=== PATIENT | female | born 1930 | race Caucasian/White ===

== ENCOUNTER 2017-05-08 06:35 | Emergency (ER) | payer MEDICARE, OTHER ==
[2017-05-08] MEDS ORDERED: HYDROmorphone 0.5 MG/0.5 ML Syringe IVPUSH ONE (07:27)
[2017-05-08] MEDS ORDERED: Sodium Chloride 0.9% 1,000 ML IV SCH (07:30)
--- NOTE | 2017-05-08 08:30 | EDM.PDOC ---
ED HPI GENERAL MEDICAL PROBLEM - General Chief Complaint: Abdominal Pain Stated Complaint: ABDOMINAL PAIN Time Seen by Provider: 05/08/17 07:15 Source of Information: Reports: Patient, Family History Limitations: Reports: No Limitations - History of Present Illness INITIAL COMMENTS - FREE TEXT/NARRATIVE: 87-year-old female who is been struggling with some right flank and right upper abdominal pain for the past 2 weeks, seems to be worsening and had difficulty sleeping last night. She feels like her right upper abdomen is "swollen". She's also had some increased urinary frequency but no dysuria. No fevers or chills, no chest pain, no shortness of breath and no significant bowel changes. No recent trauma although she's been working hard in the garden. She went on a long walk yesterday. She has a history of a cholecystectomy. Onset: Unknown/Unsure (Symptoms have been waxing and waning for several weeks) Location: Reports: Abdomen Quality: Reports: Ache, Pressure Severity: Moderate Improves with: Reports: None Worsens with: Reports: Other (Palpation of the painful area hurts, it also is painful to bend forward) Associated Symptoms: Denies: Cough, Fever/Chills, Loss of Appetite, Nausea/ Vomiting, Shortness of Breath, Weakness Right Lower Abdomen Pain Score (Numeric/FACES): 8 - Related Data Allergies Allergy/AdvReac Type Severity Reaction Status Date / Time No Known Allergies Allergy Verified 05/08/17 06:53 Home Meds: Home Meds Magnesium Hydroxide [Milk of Magnesia] 30 ml PO DAILY PRN #30 05/15/15 [Rx] Biotin 1 tab PO DAILY 09/10/15 [History] Calcium Carbonate [Calcium] 1 tab PO BID 09/10/15 [History] Cholecalciferol (Vitamin D3) [Vitamin D] 1 tab PO DAILY 09/10/15 [History] Glucosa Keenan 2KCl/Chondroitin Keenan [Glucosamine-Chondroitin Cap] 1 tab PO DAILY [History] Mv-Mn/FA/Vit K/Lycop/Lut/Zeaxa [Ocuvite Eye + Multi Tablet] 1 tab PO DAILY 09/10 [History] Vitamin B Complex 1 cap PO DAILY 09/10/15 [History] Past Medical History HEENT History: Reports: Impaired Vision Other Cardiovascular History: "I guess it skips a beat every once in a while" Other Gastrointestinal History: Constipation 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: , 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 Other OB/BYN History: prolapsed uterus Musculoskeletal History: Reports: Fracture Other Musculoskeletal History: r leg ankle Neurological History: Reports: TIA Psychiatric History: Reports: Anxiety, Depression - Infectious Disease History Infectious Disease History: Reports: Chicken Pox, Measles, Mumps - Past Surgical History HEENT Surgical History: Reports: Cataract Surgery, Tonsillectomy 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 GI Surgical History: Reports: Cholecystectomy, Other (See Below) Other GI Surgeries/Procedures: Has been told can not see appendics Female Surgical History: Reports: Hysterectomy Social & Family History - Tobacco Use Smoking Status *Q: Never Smoker Second Hand Smoke Exposure: No - Caffeine Use Caffeine Use: Reports: Coffee, Soda - Recreational Drug Use Recreational Drug Use: No - Living Situation & Occupation Living situation: Reports: , with Spouse Occupation: Retired ED ROS GENERAL - Review of Systems Review Of Systems: See Below Constitutional: Denies: Fever, Chills, Malaise HEENT: Reports: No Symptoms Respiratory: Reports: Pleuritic Chest Pain (A small amount of increased pain with deep breath). Denies: Shortness of Breath Cardiovascular: Denies: Chest Pain, Palpitations Endocrine: Denies: Fatigue GI/Abdominal: Reports: Abdominal Pain. Denies: Constipation, Diarrhea, Decreased Appetite, Nausea, Vomiting : Reports: Urgency (Little bit of increased urgency) Musculoskeletal: Reports: No Symptoms Skin: Reports: No Symptoms Neurological: Reports: No Symptoms Psychiatric: Reports: No Symptoms ED EXAM, GI/ABD - Physical Exam Exam: See Below Exam Limited By: No Limitations General Appearance: Alert, No Apparent Distress (Patient is not distressed but does look uncomfortable) Eyes: Bilateral: Normal Appearance Respiratory/Chest: No Respiratory Distress, Lungs Clear Cardiovascular: Regular Rate, Rhythm GI/Abdominal Exam: Soft, Tender (Patient is tender in the right upper quadrant, right flank and markedly tender to palpation along the lower right edge of the rib cage) Extremities: No: Pedal Edema Neurological: Alert, Oriented Skin Exam: Warm, Dry (No rash over the painful area) Course - Vital Signs Last Recorded V/S: Last Vital Signs Temp 97.2 F 05/08/17 10:00 Pulse 86 05/08/17 10:00 Resp 20 05/08/17 10:00 BP 154/76 H 05/08/17 10:00 Pulse Ox 92 L 05/08/17 10:00 - Orders/Labs/Meds Orders: Active Orders 24 hr Category Date Time Status PATIENT RETYPE [BBK] Stat Lab 05/08/17 10:00 Results TYPE AND SCREEN [BBK] Stat Lab 05/08/17 10:00 Results Labs: Laboratory Tests 05/08/17 05/08/17 05/08/17 Range/Units 07:37 07:37 08:28 WBC 7.9 (4.5-11.0) K/uL RBC 4.52 (3.30-5.50) M/uL Hgb 13.7 (12.0-15.0) g/dL Hct 41.8 (36.0-48.0) % MCV 93 (80-98) fL MCH 30 (27-31) pg MCHC 33 (32-36) % Plt Count 231 (150-400) K/uL Neut % (Auto) 85 H (36-66) % Lymph % (Auto) 6 L (24-44) % Runnels % (Auto) 9 H (2-6) % Eos % (Auto) 1 L (2-4) % Baso % (Auto) 0 (0-1) % Sodium 139 L (140-148) mmol/L Potassium 3.8 (3.6-5.2) mmol/L Chloride 105 (100-108) mmol/L Carbon Dioxide 26 (21-32) mmol/L Anion Gap 11.8 (5.0-14.0) mmol/L BUN 11 D (7-18) mg/dL Creatinine 0.8 (0.6-1.0) mg/dL Est Cr Clr Drug Dosing 40.66 mL/min Estimated GFR (MDRD) > 60 (>60) Glucose 126 H (74-106) mg/dL Calcium 8.6 (8.5-10.1) mg/dL Total Bilirubin 1.5 H (0.2-1.0) mg/dL AST 27 (15-37) U/L ALT 26 (12-78) U/L Alkaline Phosphatase 84 (46-116) U/L Total Protein 6.9 (6.4-8.2) g/dL Albumin 3.5 (3.4-5.0) g/dL Globulin 3.4 (2.3-3.5) g/dL Albumin/Globulin Ratio 1.0 L (1.2-2.2) Amylase 62 (25-115) U/L Lipase 151 (73-393) U/L Urine Color Yellow Urine Appearance Cloudy Urine pH 6.5 (4.5-8.0) Ur Specific [place] 1.015 (1.008-1.030) Urine Protein Negative (NEGATIVE) mg/dL Urine Glucose (UA) Normal (NEGATIVE) mg/dL Urine Ketones 50 H (NEGATIVE) mg/dL Urine Occult Blood Negative (NEGATIVE) Urine Nitrite Negative (NEGATIVE) Urine Bilirubin Negative (NEGATIVE) Urine Urobilinogen Normal (NORMAL) mg/dL Ur Leukocyte Esterase Large (NEGATIVE) Urine RBC 0-5 (0-5) Urine WBC 0-5 (0-5) Ur Epithelial Cells Many Amorphous Sediment Few Urine Bacteria Moderate Urine Mucus Few Blood Type Gel Antibody Screen 05/08/17 Range/Units 10:00 WBC (4.5-11.0) K/uL RBC (3.30-5.50) M/uL Hgb (12.0-15.0) g/dL Hct (36.0-48.0) % MCV (80-98) fL MCH (27-31) pg MCHC (32-36) % Plt Count (150-400) K/uL Neut % (Auto) (36-66) % Lymph % (Auto) (24-44) % Runnels % (Auto) (2-6) % Eos % (Auto) (2-4) % Baso % (Auto) (0-1) % Sodium (140-148) mmol/L Potassium (3.6-5.2) mmol/L Chloride (100-108) mmol/L Carbon Dioxide (21-32) mmol/L Anion Gap (5.0-14.0) mmol/L BUN (7-18) mg/dL Creatinine (0.6-1.0) mg/dL Est Cr Clr Drug Dosing mL/min Estimated GFR (MDRD) (>60) Glucose (74-106) mg/dL Calcium (8.5-10.1) mg/dL Total Bilirubin (0.2-1.0) mg/dL AST (15-37) U/L ALT (12-78) U/L Alkaline Phosphatase (46-116) U/L Total Protein (6.4-8.2) g/dL Albumin (3.4-5.0) g/dL Globulin (2.3-3.5) g/dL Albumin/Globulin Ratio (1.2-2.2) Amylase (25-115) U/L Lipase (73-393) U/L Urine Color Urine Appearance Urine pH (4.5-8.0) Ur Specific [place] (1.008-1.030) Urine Protein (NEGATIVE) mg/dL Urine Glucose (UA) (NEGATIVE) mg/dL Urine Ketones (NEGATIVE) mg/dL Urine Occult Blood (NEGATIVE) Urine Nitrite (NEGATIVE) Urine Bilirubin (NEGATIVE) Urine Urobilinogen (NORMAL) mg/dL Ur Leukocyte Esterase (NEGATIVE) Urine RBC (0-5) Urine WBC (0-5) Ur Epithelial Cells Amorphous Sediment Urine Bacteria Urine Mucus Blood Type O POSITIVE Gel Antibody Screen Negative Meds: Medications Discontinued Medications Generic Name Dose Route Start Last Admin Trade Name Freq PRN Reason Stop Dose Admin Hydromorphone HCl 0.25 mg 05/08/17 07:27 05/08/17 07:44 Dilaudid IVPUSH 05/08/17 07:28 0.25 mg ONETIME ONE Administration Sodium Chloride 1,000 mls @ 200 mls/hr 05/08/17 07:30 05/08/17 07:42 Normal Saline IV 200 mls/hr ASDIRECTED JOSELO Administration Sodium Chloride 100 mls @ 3.5 mls/sec 05/08/17 08:45 05/08/17 09:00 Normal Saline IV 05/08/17 10:00 3 mls/sec ASDIRECTED JOSELO Administration Iopamidol 100 ml 05/08/17 08:43 05/08/17 08:59 Isovue-300 (61%) IV 05/08/17 10:00 86 ml . DIRECTED PRN Administration RADIOLOGY EXAM - Re-Assessments/Exams Free Text/Narrative Re-Assessment/Exam: 05/08/17 07:56 An IV was started, the patient was given a small amount of Dilaudid, 0.25 mg, and normal saline at 200 mL an hour was started. CBC CMP amylase and lipase were obtained. UA was collected. 05/08/17 10:13 Labs were reassuring. A CT scan of the abdomen revealed very large hepatic cysts that are likely causing her symptoms. I discussed her case with Dr. Wilkins , surgery, and he will see her in clinic on Monday to develop a surgical plan. She was given [address] [place] to take one every 4 hours for pain. Departure - Departure Time of Disposition: 10:44 Disposition: Home, Self-Care 01 Condition: Fair Clinical Impression: Cystic disease of liver Abdominal pain Qualifiers: Abdominal location: right upper quadrant Qualified Code(s): R10.11 - Right upper quadrant pain - Discharge Information Instructions: Abdominal Pain, Adult, [id number] Referrals: Shabnam Yi RESEARCH ANALYST [Primary Care Provider] - Forms: ED Department Discharge Care Plan Goals: Take one pain pill every 3-4 hours as needed for discomfort. Recheck on Monday as scheduled. - My Orders Last 24 Hours: My Active Orders 05/08/17 10:00 PATIENT RETYPE [BBK] Stat TYPE AND SCREEN [BBK] Stat - Assessment/Plan Last 24 Hours: My Active Orders 05/08/17 10:00 PATIENT RETYPE [BBK] Stat TYPE AND SCREEN [BBK] Stat
[2017-05-08] MEDS ORDERED: Iopamidol 612 MG/ML 100 ML Bottle IV PRN (08:43)
[2017-05-08] MEDS ORDERED: Sodium Chloride 0.9% 100 ML IV SCH (08:45)
--- NOTE | 2017-05-08 09:21 | CT ---
Abdomen pelvis CT. History: Right abdominal and flank pain. Technique: IV and oral contrast were administered followed by axial imaging from the lung bases exten ding through the abdomen and pelvis. Coronal images were reconstructed. Total DLP: 582. Comparison: Findings: Limited evaluation of the lower lung barriga demonstrates bibasilar atelectasis. There are multiple enlarged cysts of the liver. The 3 largest cysts measure 13.6, 15.8, and 14.3 cm. There is hepatomegaly. The liver measures 26 cm in length. The gallbladder is surgically absent. The right kidney is displaced medially. The kidneys demonstrate symmetric excretion of contrast. Left anita al cysts are demonstrated. The pancreas and adjacent tissues are unremarkable. The adrenal glands are normal in size. There is no large or small bowel distention. There is no wall thickening. No free ai r seen. Impression: 1. Hepatomegaly with multiple enlarged hepatic cysts. 2. No acute findings of the abdomen or pelvis.
[2017-05-08 10:40] VITALS: BP 154/76
== END 2017-05-08 10:35 | disposition home or self-care (01) ==
LOC: JP.ED 06:35
DX: Q44.6 Cystic disease of liver (principal)
CPT/HCPCS: 36415; 74177; 80053; 81001; 82150; 83690; 85025; 86850; 86900; 86901; 96361; 96374; 99283; 99284; J1170; J7030; J7040; Q9967

== ENCOUNTER 2017-05-11 09:52 | Inpatient (IN) | payer MEDICARE, OTHER ==
[2017-05-11] MEDS: Dextrose 5%-Lactated Ringers 1,000 ML IV SCH ×2 (10:31→19:24)
[2017-05-11] MEDS ORDERED: ceFAZolin 2 GM in Premix Bag 1 BAG IV ONE (11:00)
[2017-05-11] MEDS ORDERED: fentaNYL 250 MCG/5 ML SDV ONE (11:34)
[2017-05-11] MEDS ORDERED: Dexamethasone 4 MG/ML SDV ONE (11:35)
[2017-05-11] MEDS ORDERED: Propofol 200 MG/20 ML SDV ONE (11:35)
[2017-05-11] MEDS ORDERED: Neostigmine Methylsulfate 1 MG/ML 5 ML Syringe ONE (11:35)
[2017-05-11] MEDS ORDERED: Glycopyrrolate 0.2 MG/ML 5 ML MDV ONE (11:35)
[2017-05-11] MEDS ORDERED: Succinylcholine 200 MG/10 ML MDV ONE (11:35)
[2017-05-11] MEDS ORDERED: Rocuronium 50 MG/5 ML Vial ONE (11:35)
[2017-05-11] MEDS ORDERED: Ondansetron 4 MG/2 ML SDV ONE (11:37)
[2017-05-11] MEDS ORDERED: Meperidine 300 MG/30 ML PCA Vial IV PRN (11:56)
[2017-05-11] MEDS ORDERED: Naloxone 0.4 MG/ML SDV IV PRN (11:58)
[2017-05-11] MEDS ORDERED: Lactated Ringers 1,000 ML ONE (15:27)
[2017-05-11] MEDS ORDERED: fentaNYL 100 MCG/2 ML SDV ONE (16:41)
[2017-05-11] MEDS ORDERED: Ondansetron 4 MG/2 ML SDV IVPUSH PRN (18:20)
[2017-05-11] MEDS ORDERED: ceFAZolin 1 GM in Premix Bag 1 BAG IV SCH (19:00)
[2017-05-11] MEDS: Pantoprazole 40 MG Vial IV SCH (19:46)
[2017-05-11] MEDS ORDERED: ceFAZolin 1 GM Vial ONE (20:12)
[2017-05-11] MEDS ORDERED: Sodium Chloride 0.9% 50 ML ONE (20:13)
[2017-05-12] MEDS ORDERED: ceFAZolin 1 GM Vial ONE (03:22)
[2017-05-12] MEDS ORDERED: Sodium Chloride 0.9% 50 ML ONE (03:24)
[2017-05-12] MEDS: Dextrose 5%-Lactated Ringers 1,000 ML IV SCH ×2 (07:07→15:32)
--- NOTE | 2017-05-12 08:18 | PN ---
DATE OF SERVICE: 05/12/2017 SUBJECTIVE: Jenn reports her pain is controlled. She is alert and oriented. Vital signs are stable. She has no other concerns or questions. OBJECTIVE: GENERAL: Jenn Jones is an 87-year-old female. VITAL SIGNS: TPR 97, 63, 16. Blood pressure 108/47. HEENT: Negative. NECK: Supple. HEART: Regular rate and rhythm. LUNGS: Clear. ABDOMEN: Dressings dry and intact. Abdominal binder is on. EXTREMITIES: Without peripheral edema. SCDs are on. ASSESSMENT: Right hepatic lobectomy, excision of 3 large hepatic cyst, fenestration of hepatic cyst for large simple cyst occupying center right lobe of the liver, smaller cyst anterior aspect, 05/11/2017. PLAN: 1. Check CBC, CMP in a.m. 2. Dressings off, may shower. 3. 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 4. Start tramadol which is already ordered. 5. Advanced diet as tolerated which is already ordered. 6. Good pulmonary toilet encouraged. 7. We will evaluate p.r.n. or in a.m. Rosaline Rasheed PA-C /[id number]
[2017-05-12] MEDS: traMADol 50 MG Tab PO PRN ×3 (10:50→23:43)
[2017-05-12] MEDS ORDERED: ceFAZolin 1 GM in Premix Bag 1 BAG IV ONE (12:00)
[2017-05-12] MEDS: Acetaminophen 325 MG Tab PO PRN (12:07)
[2017-05-12] MEDS ORDERED: Magnesium Hydroxide 400 MG/5 ML Susp 30 ML Cup PO ONE (16:32)
[2017-05-12] MEDS: Pantoprazole 40 MG Vial IV SCH (20:56)
[2017-05-12] MEDS ORDERED: traMADol 50 MG Tab ONE (23:42)
[2017-05-13] MEDS ORDERED: Bisacodyl 10 MG Supp RECTAL ONE (08:00)
[2017-05-13] MEDS ORDERED: Potassium Chloride 20 MEQ Tab.ER PO ONE (08:00)
[2017-05-13] MEDS: traMADol 50 MG Tab PO PRN (08:03)
[2017-05-13] MEDS: Acetaminophen 325 MG Tab PO PRN (08:38)
[2017-05-13 11:23] VITALS: BP 124/74
[2017-05-13] MEDS ORDERED: Pantoprazole 40 MG Tab.CR PO SCH (16:30)
--- NOTE | 2017-05-15 11:58 | DISCH ---
ADMISSION DIAGNOSIS: Symptomatic cysts on liver. DISCHARGE DIAGNOSES: Right hepatic lobectomy excision of 3 large hepatic cysts, fenestration of hepatic cyst for a large simple cyst occupying center right lobe of liver, smaller cyst anterior aspect, date of surgery 05/11/2017. HISTORY: Jenn Jones is a pleasant 87-year-old female, who had large hepatic cysts, which were causing increased abdominal pain and pressure. After preoperative evaluation and discussion of possible risks and possible complications, she wished to proceed with surgical procedure. HOSPITAL COURSE: Jenn had her surgery on 05/11/2017. She had no operative complications. On postop day 1, she was started on oral pain medication. Her diet was advanced as tolerated. She was up ambulating. On postop day 2, she was able to be discharged to home. Her ORESTES drain will be left in. Potassium was replaced prior to discharge. Pain was well managed. Activity was good. PHYSICAL EXAMINATION: GENERAL: Jenn Jones is a pleasant 87-year-old female. She is alert and orientated. VITAL SIGNS: Height 5 feet 2 inches. Weight is 140 pounds. TPR is 98.2, 76, 14 and blood pressure 112/51. HEENT: Negative. NECK: Supple. HEART: Regular rate and rhythm. LUNGS: Clear. ABDOMEN: Sutures in place. Her ORESTES drain put out 400 mL of a punch-colored drainage in the past 24 hours. Oral intake was 1840 and urine output was 1000. She did void 125 mL after her Rodriguez was removed today. EXTREMITIES: Without peripheral edema. DISPOSITION: Discharged to home. CONDITION: Stable and improving. FOLLOWUP APPOINTMENT: Rosaline Rasheed PA-C on 05/16/2017 at 10:00 a.m. HOME MEDICATIONS: 1. Tylenol 650 mg oral q.4 hours p.r.n. pain. 2. Tramadol 50 mg q.4 hours p.r.n. pain, #30. 3. She is to resume her home medications of biotin 1000 mcg oral daily. 4. Calcium carbonate 500 mg twice daily. 5. Vitamin D3 1000 units daily. 6. Ocuvite Eye + Multi tablet 1 daily. 7. Vitamin B complex 1 daily. 8. Discontinue taking the hydrocodone and acetaminophen. DISCHARGE DIET: Usual diet as tolerated. Drink 8 to 10 glasses of water a day. ACTIVITY: As tolerated. No lifting greater than 10 pounds for 2 weeks. DISCHARGE INSTRUCTIONS: Driving, do not drive while on pain medication. Shower/bathing, may shower. Notify provider if any fever, increased pain, nausea, or vomiting. Keep site clean and dry. Wear abdominal binder for 2 weeks and then as tolerated. Special instructions: Strip, empty, measure ORESTES drain 4 times a day and when half full, record the amount of drainage and bring to clinic appointment. Use incentive spirometer 10 times every hour while awake.
--- NOTE | 2017-05-15 17:55 | OR ---
DATE OF PROCEDURE: 05/11/2017 PREOPERATIVE DIAGNOSIS: Very large hepatic cyst, causing marked pain and difficulty in eating secondary to compression of the zackary-epigastric outlet. POSTOPERATIVE DIAGNOSES: 1. Right hepatic lobe largely occupied by 3 large cysts. 2. Smaller left lobe cyst. OPERATIVE PROCEDURE: Diagnostic laparoscopy with: 1. Right hepatic lobectomy including excision of the 3 large cysts (621724) . 2. Fenestration of hepatic cysts involving the quadrate lobe of the liver ( [id number]). ANESTHESIA: General. HEAD OF INSIGHT: ARMANI Matute INDICATIONS FOR PROCEDURE: This is an 87-year-old, presenting with worsening pain and inability to maintain satisfactory oral intake. On CT scan earlier this week, she was noted to have massive cyst involvement, primarily in the right lobe, causing displacement of the right kidney, compression of the gastric outlet area, as well as marked distention of the abdomen anteriorly and laterally at that level. The area had become, at this point, quite tender as well. These appear to be simple cysts by CT scan, and due to their large size and associated symptoms, plan is to proceed with fenestration and/or excision of these, depending on the operative findings. Potential risks of the procedure including bleeding, infection, injury to underlying viscera, the remote possibility these might be malignant were gone over, along with the remote possibility of cardiopulmonary, septic, or hemorrhagic complications leading to were all discussed, and the patient wishes to proceed. DETAILS OF THE PROCEDURE: The patient was taken to the operating room, and after general endotracheal anesthesia was induced, Rodriguez catheter was inserted, and the patient was placed in a lithotomy position. The abdomen was then prepped and draped. Because of the cysts more or less coming down on the right side of the abdomen to somewhat below the umbilicus, the initial trocar site was in the left lower quadrant. Eventually, four additional trocars were placed. Initially, the 3 hepatic cysts on the right lobe of the liver were seen. These essentially occupied the entire substance of the right lobe with remaining liver tissue being essentially where the quadrate lobe of the liver started, i.e. that would be the right-sided portion of the left lobe of the liver. At that point, the decision was to initially drain these cysts to facilitate further dissection. The cysts were then drained. A total of 3800 mL of clear serous fluid was removed upon drainage of the 3 cysts. At this point, the right lobe of the liver, which was essentially now cysts with only a small rim of liver tissue around it, was excised flush with the quadrate lobe, beginning inferiorly and then continuing superiorly with a series of SARTHAK olegario. In most cases, a purple load and in less common cases, the claire loads were used. The portions of liver occupying the cysts were taken out in pieces to facilitate satisfactory removal of the cysts, and these 3 cysts were separately labeled as they came out as well. At that point, the right hepatic lobectomy appeared to be satisfactorily completed. No bile leaks were seen. There is one fairly substantial cyst in the quadrate lobe. This was located anteriorly. This was initially incised and another 150 mL of fluid was removed. This also was clear fluid. The anterior aspect of the cyst was then opened, and a small window of tissue taken to provide fenestration of this cyst. At this point, no further problems were noted. A Kendell-Gold drain was then taken to the right lateral trocar site, positioned adjacent to the hepatic lobectomy staple lines, and the trocars were then sequentially removed and peritoneal cavity deflated. The fascia of the 12 mm site was closed with 0 Vicryl stitch and the skin at each of the incisions with 4-0 Vicryl skin stitch. The drain was affixed with a 4-0 Vicryl stitch as well and the patient taken to the recovery room in satisfactory condition. Physician physical therapist assistant, Rosaline Rasheed, played an essential role in assisting in this case, helping to position the patient, retracting structures as needed, as well as suturing and cutting sutures when indicated. Her presence improved patient's safety and decreased operative time. Hayden Wilkins MD /[id number]
== END 2017-05-13 11:50 | disposition home or self-care (01) | DRG 407 ==
LOC: JP.SDS 09:52 → JP.MS 09:52 → EDSTATUS 11:00 → JP.MS 17:50
PROVIDERS: ADMIT Surgery; ATTEND Surgery
PROC: 0FB14ZZ Excision of Right Lobe Liver, Percutaneous Endoscopic Approach (ICD-10-PCS; principal; 2017-05-11)
PROC: 0F9 Hepatobiliary System and Pancreas, Drainage (ICD-10-PCS; principal; 2017-05-11)
DX: K76.89 Other specified diseases of liver (principal); Z86.73 Personal history of transient ischemic attack (TIA), and cerebral infarction without residual deficits; G54.7 Phantom limb syndrome without pain
CPT/HCPCS: 36415; 80053; 83735; 83880; 84100; 85027; 86850; 86900; 86901; 86920; 86922; 88305; 93005; 94762; A9270-GY; C9113; J0330; J0690; J1100; J2175; J2405; J2704; J2710; J3010; J7042; J7050; J7120

== ENCOUNTER 2020-03-13 07:55 | Inpatient (IN) | payer MEDICARE, OTHER ==
[~2020-03-13 07:55] MED LIST: Dexamethasone 4 MG/ML SDV ONE; Glycopyrrolate 0.2 MG/ML 5 ML MDV ONE; Neostigmine Methylsulfate 1 MG/ML 5 ML Syringe ONE; Ondansetron 4 MG/2 ML SDV ONE; Propofol 200 MG/20 ML SDV ONE; Rocuronium 50 MG/5 ML Vial ONE; Succinylcholine 200 MG/10 ML MDV ONE; fentaNYL 250 MCG/5 ML SDV ONE
[2020-03-13] MEDS ORDERED: Bupivacaine 0.5% 50 ML MDV ONE (08:04)
[2020-03-13] MEDS ORDERED: Meropenem 500 MG SDV ONE (08:04)
[2020-03-13] MEDS ORDERED: Lidocaine 1% with EPINEPHrine 1:100,000 50 ML MDV ONE (08:04)
[2020-03-13] MEDS ORDERED: Bupivacaine 0.5%/EPINEPHrine 1:200,000 50 ML MDV ONE (08:05)
[2020-03-13] MEDS ORDERED: Acetaminophen 500 MG Tab PO ONE (08:15)
[2020-03-13] MEDS ORDERED: Dextrose 5%-Lactated Ringers 1,000 ML IV SCH (09:00)
[2020-03-13] MEDS ORDERED: Ropivacaine 30 ML, dexAMETHasone 8 MG, EPINEPHrine 0.4 MG, Sodium Chloride 0.9% 47.6 ML NERVRT SCH ×4 (09:45)
[2020-03-13] MEDS ORDERED: diphenhydrAMINE 25 MG Cap PO PRN (10:24)
[2020-03-13] MEDS ORDERED: HYDROmorphone/Normal Saline 15 MG/30 ML PCA IV PRN (10:24)
[2020-03-13] MEDS ORDERED: Naloxone 0.4 MG/ML SDV IVPUSH PRN (10:24)
[2020-03-13] MEDS ORDERED: diphenhydrAMINE 50 MG/ML SDV IVPUSH PRN (10:24)
[2020-03-13] MEDS ORDERED: Ondansetron 4 MG/2 ML SDV IVPUSH PRN (10:24)
[2020-03-13] MEDS: cefOXitin 2 GM in Sodium Chloride 0.9% 50 ML IV ONE ×2 (10:26→14:22)
[2020-03-13] MEDS ORDERED: Labetalol 20 MG/4 ML Syringe ONE (10:52)
[2020-03-13] MEDS ORDERED: Lactated Ringers 1,000 ML ONE (11:27)
[2020-03-13] MEDS ORDERED: Sugammadex Sodium 200 MG/2 ML VIAL ONE (12:23)
[2020-03-13] MEDS ORDERED: fentaNYL 100 MCG/2 ML SDV ONE (12:29)
[2020-03-13] MEDS ORDERED: Cyclobenzaprine 10 MG Tab PO PRN (13:29)
[2020-03-13] MEDS ORDERED: Naloxone 0.4 MG/ML SDV IV PRN (14:00)
[2020-03-13] MEDS: Ondansetron 4 MG/2 ML SDV IVPUSH PRN (14:19)
[2020-03-13] MEDS: hydrOXYzine HCL 100 MG/2 ML SDV IM PRN (15:43)
[2020-03-13] MEDS: Pantoprazole 40 MG Vial IVPUSH SCH (16:25)
[2020-03-13] MEDS: Dextrose 5%-Lactated Ringers 1,000 ML IV SCH ×2 (16:28→23:12)
[2020-03-13] MEDS: cefOXitin 2 GM in Sodium Chloride 0.9% 50 ML IV SCH ×2 (16:36→21:31)
[2020-03-13] MEDS ORDERED: Scopolamine 1.5 MG Transdermal Patch TOP SCH (17:00)
[2020-03-14] MEDS: cefOXitin 2 GM in Sodium Chloride 0.9% 50 ML IV SCH (04:35)
[2020-03-14] MEDS: Dextrose 5%-Lactated Ringers 1,000 ML IV SCH ×3 (04:36→16:07)
[2020-03-14] MEDS: SCOPOLAMINE PATCH CHECK TOP SCH (08:00)
[2020-03-14] MEDS ORDERED: Potassium Phos in 0.9 % NaCl 15 MMOL in Premix Bag 1 BAG IV ONE ×2 (09:00)
[2020-03-14] MEDS: Pantoprazole 40 MG Vial IVPUSH SCH (16:08)
[2020-03-15] MEDS: Dextrose 5%-Lactated Ringers 1,000 ML IV SCH ×2 (02:15→21:57)
[2020-03-15] MEDS: Ondansetron 4 MG/2 ML SDV IVPUSH PRN (07:49)
[2020-03-15] MEDS: Potassium Phos in 0.9 % NaCl 15 MMOL in Premix Bag 1 BAG IV SCH ×6 (08:09→12:40)
[2020-03-15] MEDS: Magnesium Sulfate/Water 2 GM in Premix Bag 1 BAG IV SCH ×3 (08:09→19:03)
[2020-03-15] MEDS: Bisacodyl 5 MG Tab PO SCH ×2 (08:51→20:38)
[2020-03-15] MEDS: Docusate Sodium 100 MG Cap PO SCH ×2 (08:51→20:38)
[2020-03-15] MEDS: SCOPOLAMINE PATCH CHECK TOP SCH (10:09)
[2020-03-15] MEDS ORDERED: Furosemide 20 MG/2 ML VIAL IVPUSH ONE (14:00)
--- NOTE | 2020-03-15 14:30 | PN ---
DATE OF SERVICE: 03/15/2020 The patient has been afebrile with stable vital signs. Urine output is still a little bit on the low side, but creatinine actually crept down from 0.9 to 0.8 over the last 24 hours. We will leave the IV running at 100 mL an hour. We will continue some bowel stimulation today. 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 Otherwise, maximize activity and work with pulmonary toilet. Her phosphate and magnesium are both somewhat low, and these will be supplemented. We will give her some Lasix after the K-Phos infusion to avoid any issues with fluid overload. We will leave the Rodriguez catheter in 1 more day as the urine output is just adequate, and we will probably get that out tomorrow. Hayden Wilkins MD /[id number]
[2020-03-15] MEDS: Pantoprazole 40 MG Vial IVPUSH SCH (15:40)
[2020-03-16] MEDS: Magnesium Sulfate/Water 2 GM in Premix Bag 1 BAG IV SCH ×4 (01:34→19:28)
[2020-03-16] MEDS ORDERED: HYDROmorphone 2 MG Tab PO PRN (07:18)
[2020-03-16] MEDS ORDERED: Potassium Phosphates 45 MMOLE in Sodium Chloride 0.9% 250 ML IV SCH (07:30)
[2020-03-16] MEDS ORDERED: Acetaminophen 325 MG Tab PO SCH (07:30)
[2020-03-16] MEDS: Dextrose 5%-Lactated Ringers 1,000 ML IV SCH (07:51)
[2020-03-16] MEDS: Potassium Phos in 0.9 % NaCl 15 MMOL in Premix Bag 1 BAG IV SCH ×6 (07:56→14:12)
[2020-03-16] MEDS: Docusate Sodium 100 MG Cap PO SCH ×2 (08:12→21:39)
[2020-03-16] MEDS: Bisacodyl 5 MG Tab PO SCH ×2 (08:12→20:00)
[2020-03-16] MEDS: Acetaminophen 325 MG Tab PO SCH ×3 (08:12→19:29)
[2020-03-16] MEDS: SCOPOLAMINE PATCH CHECK TOP SCH (08:13)
--- NOTE | 2020-03-16 09:08 | PN ---
DATE OF SERVICE: 03/14/2020 The patient has been afebrile with stable vital signs. Initially, she has had quite a bit of nausea. This appears to have cleared. She appeared to be somewhat under-medicated in terms of pain, and at this point, we have her on low dose Dilaudid, demand dose because of her age and such, but we will move her up to 0.3 from 0.2 presently. Otherwise, urine output has been satisfactory, but I will leave the IV rate running at a fast rate until around 4:00 p.m. and then back down to 100 mL an hour. Her labs show the hemoglobin having dropped to 13.5 preoperatively to 12.0 this morning. Given the intraoperative blood loss that has been indicated, we are probably not dealing with much in the way of real postoperative bleeding. Quite a bit is coming out of the drain, that is red, and there probably is quite a bit in the way of serous type fluid mixed with that. The total bilirubin is 0.8. She is going okay from liver function standpoint. The phosphate is marginally low. We will give her some potassium phosphate IV today. Otherwise, maximize activity and work with pulmonary toilet. We will leave the Rodriguez catheter in place for today to kristina her urine output. Hayden Wilkins MD /[id number]
--- NOTE | 2020-03-16 10:28 | PN ---
DATE OF SERVICE: 03/16/2020 SUBJECTIVE: Jenn has been afebrile. Oral intake 290 and sips of liquid. Her Rodriguez catheter put out 545. ORESTES drain #1, 170. ORESTES drain #2 is 210. ORESTES drain #3 is 165. The first 2 ORESTES drains are dark red drainage, and ORESTES drain #3 is serosanguineous. REVIEW OF SYSTEMS: Remainder of review of systems negative for any pertinent positives and negatives. OBJECTIVE: GENERAL: Jenn is a pleasant 89-year-old female. VITAL SIGNS: TPR at 0231, 97.7, 77, 18, blood pressure 123/57. HEENT: Negative. NECK: Supple. HEART: Regular rate and rhythm. LUNGS: Clear. ABDOMEN: Dressing dry and intact. ORESTES drains x3 as above. EXTREMITIES: Without peripheral edema. ASSESSMENT: Exploratory laparotomy with, 1. Right hepatic lobectomy. 2. Marsupialization of medial cyst, tearing wall overlying segment 4. 3. Resection portion of the right diaphragm. 4. Omental flap into marsupialization, medial right hepatic cyst. 5. Repair of trocar site hernia. 6. Placement of Interceed mesh. POSTOPERATIVE DIAGNOSES: 1. Multiple large right hepatic cysts causing moderate pain and segment displacement and adhesion to right diaphragm. 2. Incarcerated incisional hernia, trocar site. Date of surgery, 03/13/2020. Surgeon: Hayden Wilkins MD. PLAN: 1. Discontinue Rodriguez. 2. Decrease IV to 60 mL per hour. 3. K-Phos 45 millimoles IV today. 4. Full liquid diet. 5. Discontinue DIRECTOR OF ELEMENTARY EDUCATION. 6. Dilaudid 2 mg every 4 hours p.r.n. pain. 7. Tylenol 650 q.6 hours scheduled. 8. Change Aquacel, order written, every 3 days. 9. We will evaluate p.r.n. or in a.m. Rosaline Rasheed PA-C /[id number]
[2020-03-16] MEDS: Pantoprazole 40 MG Vial IVPUSH SCH (17:18)
[2020-03-17] MEDS: Magnesium Sulfate/Water 2 GM in Premix Bag 1 BAG IV SCH (01:33)
[2020-03-17] MEDS: Acetaminophen 325 MG Tab PO SCH ×4 (01:34→20:55)
[2020-03-17] MEDS: Bisacodyl 5 MG Tab PO SCH ×2 (09:32→20:55)
[2020-03-17] MEDS: Docusate Sodium 100 MG Cap PO SCH ×2 (09:32→20:55)
[2020-03-17] MEDS: traMADol 50 MG Tab PO PRN (09:34)
[2020-03-17] MEDS: Potassium Phos in 0.9 % NaCl 15 MMOL in Premix Bag 1 BAG IV SCH ×6 (09:36→14:05)
[2020-03-17] MEDS: hydrOXYzine HCL 100 MG/2 ML SDV IM PRN (13:20)
[2020-03-17] MEDS: Pantoprazole 40 MG Vial IVPUSH SCH (16:15)
[2020-03-18] MEDS: Dextrose 5%-Lactated Ringers 1,000 ML IV SCH (00:29)
[2020-03-18] MEDS: Acetaminophen 325 MG Tab PO SCH ×4 (01:52→19:40)
[2020-03-18] MEDS: Docusate Sodium 100 MG Cap PO SCH ×2 (09:19→21:25)
[2020-03-18] MEDS: Potassium Phos in 0.9 % NaCl 15 MMOL in Premix Bag 1 BAG IV SCH ×8 (09:19→18:34)
--- NOTE | 2020-03-18 13:23 | PN ---
DATE OF SERVICE: 03/13/2020 SUBJECTIVE: Jenn is postop day #2. She states that she had a bowel movement. She is having to urinate quite frequently, would like the IV decreased. Drains were removed yesterday. She states her pain is controlled. She has no other questions or concerns. Her potassium is 3.5 and phosphorus is 2.7. Hemoglobin this morning is 9.2. OBJECTIVE: GENERAL: Jenn Jones is a pleasant, 89-year-old female. She is alert and orientated. VITAL SIGNS: TPR at 0700 is 98.1, 91, 18; blood pressure 126/58. HEENT: Negative. NECK: Supple. HEART: Regular rate and rhythm. LUNGS: Clear. ABDOMEN: Dressing dry and intact. Abdominal binder is on. EXTREMITIES: Without peripheral edema. ASSESSMENT: Exploratory laparotomy with: 1. Right hepatic lobectomy. 2. Manipulation of medial cyst tearing wall of overlying segment 4. 3. Resection of the right diaphragm. 4. Omental flap into medial right hepatic cyst. 5. Repair of trocar site hernia. 6. Placement of Interceed mesh. Postoperative Diagnoses: 1. Multiple large hepatic cyst causing moderate pain and segment displacement and adhesion of right diaphragm. 2. Incarcerated incisional hernia, trocar site. Date of surgery: 03/13/2020. Surgeon: Hayden Wilkins MD. PLAN: 1. K-Phos 60 millimoles IV now. 2. Check CBC, CMP, mag, phos in a.m. 3. Saline lock IV for regular diet. 4. Discontinue Dulcolax tabs. 5. We will evaluate p.r.n. or in a.m. Rosaline Rasheed PA-C /[id number]
[2020-03-18] MEDS: Pantoprazole 40 MG Vial IVPUSH SCH (17:39)
[2020-03-18] MEDS: traMADol 50 MG Tab PO PRN (18:44)
[2020-03-18] MEDS ORDERED: Pantoprazole 40 MG Tab.CR PO SCH (21:00)
[2020-03-19] MEDS: Acetaminophen 325 MG Tab PO SCH (03:00)
[2020-03-19] MEDS ORDERED: Acetaminophen 325 MG Tab PO PRN (07:25)
[2020-03-19 07:36] VITALS: BP 131/64; PULSE 87
[2020-03-19] MEDS: Docusate Sodium 100 MG Cap PO SCH (08:06)
--- NOTE | 2020-03-19 11:49 | DISCH ---
ADMISSION DIAGNOSIS: Cystic disease of the liver. DISCHARGE DIAGNOSES: Exploratory laparotomy with: 1. Right hepatic lobectomy. 2. Manipulation of medial cyst tearing wall of overlying segment IV. 3. Resection of the right diaphragm. 4. Omental flap into medial right hepatic cyst. 5. Repair of trocar site hernia. 6. Placement of Interceed mesh. POSTOPERATIVE DIAGNOSES: 1. Multiple large hepatic cysts causing moderate pain and segment displacement and adhesions of right diaphragm. 2. Incarcerated incisional hernia of trocar site. 3. Date of surgery: 03/13/2020. Surgeon: Hayden Wilkins MD. HISTORY: Jenn Jones is a pleasant 89-year-old female with history of hepatic cysts that were causing her quite a bit of pain. After preoperative evaluation and discussion of possible risks and possible complications, she wished to proceed with surgical procedure. HOSPITAL COURSE: Jenn had her surgery on 03/13/2020. She had no operative complications. On postoperative day #1, she was afebrile. She had quite a bit of nausea and Dilaudid dose was decreased. Hemoglobin dropped from 13.5 to 12. On postoperative day #2, vital signs remained afebrile. She was started on bowel stimulation. Phosphate and magnesium were replaced, and she was given some Lasix to avoid fluid overload. On postoperative day #3, Rodriguez catheter was discontinued. K-Phos was given. She was changed to oral pain medication. On postoperative day #4, she had a bowel movement, advanced to a regular diet. K-Phos was replaced and IV saline locked. On postoperative day #5, Jenn was able to be discharged to [facility] in stable condition. Vital signs are stable. Last labs; hemoglobin 9.1, white count is 4.7, creatinine is 0.7, potassium 4.1, and phosphorus is 3.4. PHYSICAL EXAMINATION: GENERAL: Jenn Jones is a pleasant 89-year-old female. She is alert and orientated. VITAL SIGNS: Height is 5 feet 1.42 inches, weight is 128 pounds. TPR at 07:35 is 95.6; 87; 16; blood pressure 131/64. HEENT: Negative. NECK: Supple. HEART: Regular rate and rhythm. LUNGS: Clear. ABDOMEN: Aquacel dressing is on over stapled incision. Abdominal binder is on. EXTREMITIES: Without peripheral edema. DISPOSITION: Discharged to home. CONDITION: Stable and improving. FOLLOWUP: Appointment With Hayden Wilkins MD, on 03/25/2020. Time of appointment is at 10:00 a.m. HOME MEDICATIONS: 1. Colace 100 mg oral b.i.d. 2. Tylenol 650 mg oral q.6 hours p.r.n. pain. 3. Tramadol/Ultram 50 mg q.6 hours p.r.n. more severe pain that Tylenol does not cover. 4. She is to resume her home medication of: a. Vitamin D3 1000 International Units daily. b. Flonase 1 spray twice daily alternate nostrils. c. Glucosamine/chondroitin 1 tablet oral twice daily. d. Multivitamin 1 tablet twice daily. e. Vitamin B complex 1 capsule oral daily. DIET: Usual diet as tolerated. Drink 8 to 10 glasses of water a day. ACTIVITY: No lifting greater than 10 pounds for 6 weeks. Other activity: Walk at least 6 times daily. Shower/bathing: May shower. DISCHARGE INSTRUCTIONS: 1. Notify provider if any fever, increased pain, swelling, redness, drainage, nausea, vomiting. Wound incision care; keep site clean and dry. Wear abdominal binder for 6 weeks as tolerated. Take off Aquacel dressing over incision on 03/22/2020. Cover incision lightly with gauze or leave open. 2. Use incentive spirometer 10 times every hour while awake for 1 week.
--- NOTE | 2020-03-20 17:09 | PN ---
DATE OF SERVICE: 03/17/2020 The patient has been afebrile with stable vital signs. Her nausea appears to be clearing somewhat. We will discontinue the scopolamine patch and go ahead with oral tramadol rather than Dilaudid today. ORESTES drain has become clear, so we will remove those. Potassium and phosphate are marginally low, these will be supplemented. Her hemoglobin is 9.2, and we will type and cross for 2 units of packed RBCs tomorrow morning in the event that we want to give her a unit of blood prior to discharge. We will transfer to [facility] or in a local residential since her postop rehab is pending. Hayden Wilkins MD /[id number]
--- NOTE | 2020-03-24 13:03 | OR ---
DATE OF PROCEDURE: 03/13/2020 SURGEON: Hayden Wilkins MD PREOPERATIVE DIAGNOSIS: Multiple large right hepatic cysts causing pain and pressure symptoms. POSTOPERATIVE DIAGNOSES: 1. Multiple large right hepatic cysts causing painful symptoms with inflammatory adherence to right diaphragm. 2. Incarcerated incisional hernia (trocar site). OPERATIVE PROCEDURES: Exploratory laparotomy with: 1. Right hepatic lobectomy (72545). 2. Marsupialization of medial cyst leaving the wall overlying segment IV of liver (83713). 3. Resection of portion of right diaphragm (95448). 4. Omental flap placed into marsupialized medial aspect of right hepatic cyst (38623). 5. Repair of incarcerated trocar site hernia (81822). 6. Placement of Interceed mesh to limit recurrent adhesion formation between pelvic and abdominal wall and underlying viscera (34159). ANESTHESIA: General. BRIMMER BLOCKER: Rosaline Rasheed PA-C INDICATIONS FOR PROCEDURE: This is an 89-year-old presenting with some recurrent cysts in the right lobe of liver. These are quite large causing some obvious distention of the abdomen as well as elevation of the right diaphragm and quite a bit in the way of ongoing pain. The plan is to proceed with exploratory laparotomy and excision of those cysts. Potential risks including bleeding, infection, injury to underlying viscera, as well as possibility of cardiopulmonary, septic, or hemorrhagic complications leading to were all discussed, and the patient wishes to proceed. DETAILS OF PROCEDURE: The patient was taken to the operating room and placed in a supine position. After general endotracheal anesthesia was induced, a Rodriguez catheter was inserted, and the abdomen prepped and draped. An upper midline incision from the xiphoid to the umbilicus was made and carried down through the full-thickness abdominal wall. During the course of the entrance, the patient was noted to have previous trocar sites which had incarcerated preperitoneal fat within it. This was excised, sent as a separate specimen. Upon entering the abdomen, the liver in general was inspected. The patient was noted to have some ongoing very small cysts within the left lobe of the liver and we eventually be leaving in a quite hypertrophied left lobe of liver which included entire portion of the segments I, II, III, IV, which should leave her with plenty of liver function given the degree of hypertrophy and the fact that the entire left lobe was present. Initial dissection in the area of the right lobe showed quite a bit in the way of inflammatory adhesions to the right diaphragm. Portions of these were essentially fused and a portion of the right diaphragm was then eventually excised in a linear transverse direction in the posterolateral aspect of the right diaphragm. This was excised initially with olegario with a small amount of muscle then remaining attached to the cyst. The staple line was then reinforced with a 2-0 Prolene running stitch. The 3 of these cysts were eventually all entered and the entire remaining right lobe was excised. The 2 larger cysts were excised in their entirety and the medial of the 3 cysts was at a wall that occupied the right lateral aspect of the segment IV and this was felt to be best left in place so as not to cause any injury to that remaining segment. All of this resection was done with a combination of electrocautery and surgical olegario and the specimens were removed from the field in segments. The hemostasis was obtained at this point with some additional sutures at some staple lines which had some oozing. During the course, some cyst fluid was sent for cytology as well as cultures. At this point, a portion of the omentum from the transverse colon was freed up by dividing the vascular connections through the transverse colon. This was then brought up into the remaining edge of the cyst overlying the segment IV of the liver. This was sutured in place with some 3-0 Vicryl stitch. This was put in position so as to limit the likelihood of the cyst reattachment to itself and recurring in a symptomatic manner. At this point, no further problems were noted. The abdomen was irrigated with antibiotic- containing saline solution. Interceed mesh was then placed underneath the incision from there down into the pelvis to displace those surfaces from the underlying viscera to limit recurrent adhesion formation. The midline fascia was then approximated with #2 Vicryl stitch, which included repair of the trocar site hernia. The subcutaneous tissue was approximated with some 3-0 and 4-0 Vicryl stitch and the skin with olegario. The patient has received bilateral transversus abdominis plane block and incision itself was also anesthetized with 0.5% Marcaine mixed with lidocaine and the patient was taken to the recovery room in satisfactory condition. There were no evident complications. Physician medical office receptionist assistant, Rosaline Rasheed, played an essential role in assisting in this case, helping to position the patient, retract the structures as needed, as well as suturing and cutting sutures when indicated. Her presence improved patient safety and decreased the operative time. Hayden Wilkins MD /[id number]
== END 2020-03-19 09:34 | DRG 406 ==
LOC: JP.SDSSCHI 07:55 → JP.SDS 07:55 → JP.MS 12:20 → EDSTATUS 13:45
PROVIDERS: ADMIT Surgery; ATTEND Surgery
PROC: 0FT Hepatobiliary System and Pancreas, Resection (ICD-10-PCS; principal; 2020-03-13)
PROC: 0WQF0ZZ Repair Abdominal Wall, Open Approach (ICD-10-PCS; 2020-03-13)
PROC: 0FB10ZZ Excision of Right Lobe Liver, Open Approach (ICD-10-PCS; 2020-03-13)
PROC: 0BBT0ZZ Excision of Diaphragm, Open Approach (ICD-10-PCS; 2020-03-13)
PROC: 0JR807Z Replacement of Abdomen Subcutaneous Tissue and Fascia with Autologous Tissue Substitute, Open Approach (ICD-10-PCS; 2020-03-13)
PROC: 0JB80ZZ Excision of Abdomen Subcutaneous Tissue and Fascia, Open Approach (ICD-10-PCS; 2020-03-13)
PROC: 3E0M05Z Introduction of Adhesion Barrier into Peritoneal Cavity, Open Approach (ICD-10-PCS; 2020-03-13)
DX: K76.89 Other specified diseases of liver (principal); K43.0 Incisional hernia with obstruction, without gangrene; M19.90 Unspecified osteoarthritis, unspecified site; K66.0 Peritoneal adhesions (postprocedural) (postinfection); J32.9 Chronic sinusitis, unspecified; Z79.899 Other long term (current) drug therapy; Z90.49 Acquired absence of other specified parts of digestive tract; Z90.710 Acquired absence of both cervix and uterus
CPT/HCPCS: 36415; 80053; 83735; 83880; 84100; 85025; 85027; 86850; 86900; 86901; 86920; 86922; 87070; 87075; 87205; 87493; 88112; 88302; 88307; 94762; 97116-GP; 97163-GP; 97530-GP; A9270-GY; C9113; J0171; J0330; J0694; J1100; J1170; J1940; J2185; J2405; J2704; J2710; J2795; J3010; J3410; J3475; J3490; J7050; J7120; J7121

== ENCOUNTER 2020-03-31 14:54 | Inpatient (IN) | payer MEDICARE, OTHER ==
[2020-03-31] MEDS ORDERED: Sodium Chloride 0.9% 10 ML Syringe FLUSH PRN (16:02)
[2020-03-31] MEDS ORDERED: Sodium Chloride 0.9% 1,000 ML IV STA (16:02)
[2020-03-31] MEDS ORDERED: fentaNYL 100 MCG/2 ML SDV IVPUSH ONE (16:05)
[2020-03-31] MEDS ORDERED: Ondansetron 4 MG/2 ML SDV IVPUSH ONE ×2 (16:05→19:41)
--- NOTE | 2020-03-31 16:07 | EDM.PDOC ---
ED HPI GENERAL MEDICAL PROBLEM - General Chief Complaint: Abdominal Pain Stated Complaint: L ABD PAIN Time Seen by Provider: 03/31/20 15:57 Source of Information: Reports: Patient, Family, RN Notes Reviewed History Limitations: Reports: No Limitations - History of Present Illness INITIAL COMMENTS - FREE TEXT/NARRATIVE: 89-year-old female presents emergency department a complaint of abdominal pain, she recently underwent extensive abdominal surgery with hepatic resection and a diaphragm resection on 13 March. She states over the last 24 hours she has had increasing pain she is not passing gas with some nausea no fevers Abdominal Pain Score (Numeric/FACES): 10 - Related Data Allergies Allergy/AdvReac Type Severity Reaction Status Date / Time No Known Allergies Allergy Verified 03/31/20 15:54 Home Meds: Home Meds Excedrin 1 cap PO Q4HR PRN 03/31/20 [History] Past Medical History HEENT History: Reports: Impaired Vision Other Cardiovascular History: "I guess it skips a beat every once in a while" Gastrointestinal History: Reports: Colon Polyp Other Gastrointestinal History: Constipation Genitourinary History: Reports: Other (See Below) Other Genitourinary History: renal cyst MEDICAL ACCOUNTING CLERK History: Reports: , Spontaneous Other MEDICAL ACCOUNTING CLERK History: prolapsed uterus Musculoskeletal History: Reports: Fracture Other Musculoskeletal History: r leg ankle Neurological History: Reports: TIA Psychiatric History: Reports: Anxiety, Depression - Infectious Disease History Infectious Disease History: Reports: Chicken Pox, Measles, Mumps - Past Surgical History Head Surgeries/Procedures: Reports: None HEENT Surgical History: Reports: Cataract Surgery, Tonsillectomy 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 liver cyst Female Surgical History: Reports: Hysterectomy Neurological Surgical History: Reports: None Musculoskeletal Surgical History: Reports: None Dermatological Surgical History: Reports: None Social & Family History - Family History Family Medical History: Noncontributory - Tobacco Use Smoking Status *Q: Never Smoker - Caffeine Use Caffeine Use: Reports: Coffee - Recreational Drug Use Recreational Drug Use: No - Living Situation & Occupation Living situation: Reports: , with Spouse Occupation: Retired ED ROS GENERAL - Review of Systems Review Of Systems: See Below Constitutional: Denies: Fever, Chills HEENT: Reports: No Symptoms Respiratory: Reports: No Symptoms Cardiovascular: Reports: No Symptoms GI/Abdominal: Reports: Abdominal Pain, Nausea. Denies: Constipation, Diarrhea, Flatus, Vomiting : Reports: No Symptoms ED EXAM, GI/ABD - Physical Exam Exam: See Below Exam Limited By: No Limitations General Appearance: Alert, WD/WN, No Apparent Distress Respiratory/Chest: No Respiratory Distress GI/Abdominal Exam: Soft, Non-Tender, Abnormal Bowel Sounds Course - Vital Signs Last Recorded V/S: Last Vital Signs Temp 99.2 F 03/31/20 15:53 Pulse 79 03/31/20 17:21 Resp 16 03/31/20 16:29 BP 133/67 03/31/20 17:21 Pulse Ox 98 03/31/20 16:29 - Orders/Labs/Meds Orders: Active Orders 24 hr Category Date Time Status Peripheral IV Care [RC] . DIRECTED Care 03/31/20 16:04 Active Abdomen 1V Upright [CR] Urgent Exams 03/31/20 16:02 Taken UA W/MICROSCOPIC [URIN] Urgent Lab 03/31/20 16:02 Ordered Sodium Chloride 0.9% [Saline Flush] Med 03/31/20 16:02 Active 10 ml FLUSH ASDIRECTED PRN Peripheral IV Insertion Adult [OM.PC] Urgent Oth 03/31/20 16:02 Ordered Medication Orders Sodium Chloride (Saline Flush) 10 ml FLUSH ASDIRECTED PRN PRN Reason: Keep Vein Open Last Admin: 03/31/20 16:49 Dose: 10 ml Documented by: PREILOR Labs: Laboratory Tests 03/31/20 03/31/20 03/31/20 Range/Units 16:16 16:16 16:16 WBC 5.3 (4.5-11.0) K/uL RBC 3.82 (3.30-5.50) M/uL Hgb 10.9 L (12.0-15.0) g/dL Hct 35.9 L (36.0-48.0) % MCV 94 (80-98) fL MCH 29 (27-31) pg MCHC 30 L (32-36) % Plt Count 329 (150-400) K/uL Neut % (Auto) 77 H (36-66) % Lymph % (Auto) 14 L (24-44) % Burt % (Auto) 8 H (2-6) % Eos % (Auto) 1 L (2-4) % Baso % (Auto) 1 (0-1) % PT 11.1 (9.5-12.0) sec INR 1.02 (0.80-1.20) Sodium 143 (140-148) mmol/L Potassium 3.2 L (3.6-5.2) mmol/L Chloride 106 (100-108) mmol/L Carbon Dioxide 24 (21-32) mmol/L Anion Gap 16.2 H (5.0-14.0) mmol/L BUN 6 L (7-18) mg/dL Creatinine 0.9 (0.6-1.0) mg/dL Est Cr Clr Drug Dosing 34.83 mL/min Estimated GFR (MDRD) 59 L (>60) Glucose 110 H (74-106) mg/dL Lactic Acid (0.4-2.0) mmol/L Calcium 8.4 L (8.5-10.1) mg/dL Total Bilirubin 0.6 (0.2-1.0) mg/dL AST 27 (15-37) U/L ALT 19 (12-78) U/L Alkaline Phosphatase 80 (46-116) U/L Total Protein 6.8 (6.4-8.2) g/dL Albumin 3.3 L (3.4-5.0) g/dL Globulin 3.5 (2.3-3.5) g/dL Albumin/Globulin Ratio 0.9 L (1.2-2.2) Lipase 230 (73-393) U/L 03/31/20 Range/Units 16:16 WBC (4.5-11.0) K/uL RBC (3.30-5.50) M/uL Hgb (12.0-15.0) g/dL Hct (36.0-48.0) % MCV (80-98) fL MCH (27-31) pg MCHC (32-36) % Plt Count (150-400) K/uL Neut % (Auto) (36-66) % Lymph % (Auto) (24-44) % Burt % (Auto) (2-6) % Eos % (Auto) (2-4) % Baso % (Auto) (0-1) % PT (9.5-12.0) sec INR (0.80-1.20) Sodium (140-148) mmol/L Potassium (3.6-5.2) mmol/L Chloride (100-108) mmol/L Carbon Dioxide (21-32) mmol/L Anion Gap (5.0-14.0) mmol/L BUN (7-18) mg/dL Creatinine (0.6-1.0) mg/dL Est Cr Clr Drug Dosing mL/min Estimated GFR (MDRD) (>60) Glucose (74-106) mg/dL Lactic Acid 1.0 (0.4-2.0) mmol/L Calcium (8.5-10.1) mg/dL Total Bilirubin (0.2-1.0) mg/dL AST (15-37) U/L ALT (12-78) U/L Alkaline Phosphatase (46-116) U/L Total Protein (6.4-8.2) g/dL Albumin (3.4-5.0) g/dL Globulin (2.3-3.5) g/dL Albumin/Globulin Ratio (1.2-2.2) Lipase (73-393) U/L Meds: Medications Generic Name Dose Route Start Last Admin Trade Name Freq PRN Reason Stop Dose Admin Sodium Chloride 10 ml 03/31/20 16:02 03/31/20 16:49 Saline Flush FLUSH 10 ml ASDIRECTED PRN Administration Keep Vein Open Discontinued Medications Generic Name Dose Route Start Last Admin Trade Name Freq PRN Reason Stop Dose Admin Fentanyl 50 mcg 03/31/20 16:05 03/31/20 16:26 Sublimaze IVPUSH 03/31/20 16:06 50 mcg ONETIME ONE Administration Hydromorphone HCl 0.5 mg 03/31/20 16:54 03/31/20 17:01 Dilaudid IVPUSH 03/31/20 16:55 0.5 mg ONETIME ONE Administration Hydromorphone HCl 1 mg 03/31/20 18:34 03/31/20 18:45 Dilaudid IVPUSH 03/31/20 18:35 1 mg ONETIME ONE Administration Sodium Chloride 1,000 mls @ 999 mls/hr 03/31/20 16:02 03/31/20 16:24 Normal Saline IV 03/31/20 17:02 999 mls/hr .BOLUS STA Administration Sodium Chloride 80 mls @ 3.5 mls/sec 03/31/20 17:30 03/31/20 17:45 Normal Saline IV 03/31/20 17:31 3 mls/sec ASDIRECTED JOSELO Administration Iopamidol 84 ml 03/31/20 17:30 03/31/20 17:45 Isovue-300 (61%) IV 03/31/20 17:31 84 ml . DIRECTED JOSELO Administration Ondansetron HCl 4 mg 03/31/20 16:05 03/31/20 16:25 Zofran IVPUSH 03/31/20 16:06 4 mg ONETIME ONE Administration Prochlorperazine Edisylate 5 mg 03/31/20 18:46 03/31/20 18:50 Compazine IVPUSH 03/31/20 18:47 5 mg ONETIME ONE Administration Sodium Chloride 10 ml 03/31/20 17:24 03/31/20 17:45 Saline Flush FLUSH 03/31/20 17:25 10 ml ONETIME ONE Administration Departure - Departure Time of Disposition: 18:54 Disposition: Admitted As Inpatient 68 Condition: Fair Clinical Impression: Small bowel obstruction - Discharge Information Referrals: PCP,None [Primary Care Provider] - Forms: ED Department Discharge Sepsis Event Note (ED) - Evaluation Sepsis Screening Result: No Definite Risk - Focused Exam Vital Signs: Vital Signs Temp Pulse Resp BP Pulse Ox 03/31/20 17:21 79 133/67 03/31/20 16:29 79 16 138/62 98 03/31/20 15:53 99.2 F 73 18 137/56 L 96 03/31/20 15:36 99.2 F 73 18 137/56 L 96 - My Orders Last 24 Hours: My Active Orders 03/31/20 16:02 Abdomen 1V Upright [CR] Urgent UA W/MICROSCOPIC [URIN] Urgent Sodium Chloride 0.9% [Saline Flush] 10 ml FLUSH ASDIRECTED PRN Peripheral IV Insertion Adult [OM.PC] Urgent 03/31/20 16:04 Peripheral IV Care [RC] . DIRECTED - Assessment/Plan Last 24 Hours: My Active Orders 03/31/20 16:02 Abdomen 1V Upright [CR] Urgent UA W/MICROSCOPIC [URIN] Urgent Sodium Chloride 0.9% [Saline Flush] 10 ml FLUSH ASDIRECTED PRN Peripheral IV Insertion Adult [OM.PC] Urgent 03/31/20 16:04 Peripheral IV Care [RC] . DIRECTED Plan: Assessment Acuity = acute Site and laterality = small bowel obstruction Etiology = unknown Manifestations = abdominal pain Location of injury = Home Lab values = hemoglobin low at 10.9 consistent normochromic anemia potassium low at 3.2 consistent hypokalemia lactic acid normal at 1.0 lipase normal at 230 CT scan describes small bowel obstruction above Plan Call discussed case hospitalist on-call at 1850 kindly agreed to come to the emergency department evaluate patient for admission This note was dictated using [employer] voice recognition software please call with any questions on syntax or grammar.
[2020-03-31] MEDS ORDERED: HYDROmorphone 0.5 MG/0.5 ML Syringe IVPUSH ONE (16:54)
[2020-03-31] MEDS ORDERED: Sodium Chloride 0.9% 10 ML Syringe FLUSH ONE (17:24)
[2020-03-31] MEDS ORDERED: Iopamidol 612 MG/ML 100 ML Bottle IV SCH (17:30)
[2020-03-31] MEDS ORDERED: Sodium Chloride 0.9% 80 ML IV SCH (17:30)
[2020-03-31] MEDS ORDERED: HYDROmorphone 1 MG/ML Syringe IVPUSH ONE ×2 (18:34→19:40)
[2020-03-31] MEDS ORDERED: Prochlorperazine 10 MG/2 ML SDV IVPUSH ONE (18:46)
--- NOTE | 2020-03-31 18:50 | CRLCT ---
INDICATION: Right upper quadrant pain status post surgery COMPARISON: February 25, 2020 TECHNIQUE: CT examination of the abdomen and pelvis was performed following the uneventful intravenous administration of 84 cc of Isovue-300. Thin section axial images were obtained from the lung bases through the pubic symphysis. Oral contrast was not administered. Please note that all CT scans at this facility use dose modulation, iterative reconstruction, and/or weight-based dosing when appropriate to reduce radiation dose to as low as reasonably achievable. FINDINGS: LUNG BASES: Minimal atelectasis at the lung bases. No effusions. Enlarged heart unchanged. LIVER/BILIARY SYSTEM:Extensive postoperative changes related to resection multiple cystic masses in the right lobe of the liver. There are cystic lesions that persist inferiorly on the left. There is no significant biliary ductal dilatation. The gallbladder is surgically absent. There is a relatively homogeneous uniform fluid collection associated with the under surface of the right hemidiaphragm. This covers the entire medial-lateral extent of the diaphragm and is about 1.5 centimeters thick. This is probably related to repair of the right hemidiaphragm. ADRENALS: Normal KIDNEYS, URETERS and BLADDER:The kidneys are normal in size. There is no obstructive uropathy. A left renal cyst in the midpole and lower pole again identified. The bladder is distended SPLEEN:Normal appearance. PANCREAS: Appears normal. RETROPERITONEUM and MESENTERY: There is no mass, adenopathy or aortic aneurysm. GASTROINTESTINAL SYSTEM: High-grade mid to distal small bowel obstruction. The distal most small bowel is decompressed. The exact point of transition is uncertain. There is mild twisting of the vascular pedicle of the mesentery best seen on axial images 73 through 82 which was not present previously. This can be seen in internal hernias and some forms abnormal rotation of the mesentery and small bowel. However, there is no current evidence of ischemic necrosis of the bowel. PELVIS: No mass, adenopathy or free fluid. OSSEOUS STRUCTURES and ABDOMINAL WALL: There is an age-appropriate appearance of the osseous structures.No significant abdominal wall defect. OTHER: No free fluid or free air. IMPRESSION: 1. High-grade mid to distal small bowel obstruction. 2. There is twisting of the vascular pedicle of the mesentery in the right lower quadrant which is new since the prior study. However, there is no current evidence of ischemic necrosis of the small bowel. 3. Extensive postsurgical changes related to resection of part of the right lobe of the liver. 4. There is a fluid collection adherent to the under surface of the right diaphragm which is relatively homogeneous and does not contain gas. This is probably related to repair of the right hemidiaphragm. 5. The above findings were discussed by myself with Officer at 6:45 p.m. on March 31, [address] Please note that all CT scans at this facility use dose modulation, iterative reconstruction, and/or weight-based dosing when appropriate to reduce radiation dose to as low as reasonably achievable. Dictated by Hayden Ashby MD @ Mar 31 2020 6:36PM Signed by Dr. Hayden Ashby @ Mar 31 2020 6:50PM
[2020-03-31] MEDS: Dextrose 5%-Lactated Ringers 1,000 ML IV SCH ×2 (19:57→21:18)
[2020-03-31] MEDS ORDERED: Melatonin 3 MG Tab PO PRN (20:39)
--- NOTE | 2020-03-31 22:08 | PCM.HP.2 ---
H&P History of Present Illness - General Date of Service: 03/31/20 Admit Problem/Dx: Admission Diagnosis/Problem Admission Diagnosis/Problem Small bowel obstruction Source of Information: Patient, Family ( Hayden at bedside) History Limitations: Reports: No Limitations - History of Present Illness Initial Comments - Free Text/Narative: chief complaint: Small Bowel Obstruction 89-year-old female presents emergency department a complaint of abdominal pain, she recently underwent extensive abdominal surgery with hepatic resection and a diaphragm resection on 13 March. She states over the last 24 hours she has had increasing pain she is not passing gas with some nausea no fevers Abdominal Onset of Symptoms: Reports: Gradual (past 24 hours) Duration of Symptoms: Reports: Hour(s): Location: Reports: Abdomen Quality: Reports: Same as Previous Episode Severity: Severe (rates pain at 10) Improves with: Reports: None Worsens with: Reports: Eating, Movement Associated Symptoms: Reports: Loss of Appetite (last meal yesterday, tried to eat chicken for lunch- emesis), Malaise, Nausea/Vomiting, Weakness Abdominal Pain Score (Numeric/FACES): 10 - Related Data Allergies/Adverse Reactions: Allergies Allergy/AdvReac Type Severity Reaction Status Date / Time No Known Allergies Allergy Verified 03/31/20 15:54 Home Medications: Home Meds Excedrin 1 cap PO Q4HR PRN 03/31/20 [History] Past Medical History HEENT History: Reports: Impaired Vision Other Cardiovascular History: "I guess it skips a beat every once in a while" Gastrointestinal History: Reports: Colon Polyp Other Gastrointestinal History: Constipation Genitourinary History: Reports: Other (See Below) Other Genitourinary History: renal cyst [employer] HE[employer] 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: , 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 Other OB/BYN History: prolapsed uterus Musculoskeletal History: Reports: Fracture Other Musculoskeletal History: r leg ankle Neurological History: Reports: TIA Psychiatric History: Reports: Anxiety, Depression - Infectious Disease History Infectious Disease History: Reports: Chicken Pox, Measles, Mumps - Past Surgical History Head Surgeries/Procedures: Reports: None HEENT Surgical History: Reports: Cataract Surgery, Tonsillectomy 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 liver cyst Female Surgical History: Reports: Hysterectomy Neurological Surgical History: Reports: None Musculoskeletal Surgical History: Reports: None Dermatological Surgical History: Reports: None Social & Family History - Family History Family Medical History: Noncontributory - Tobacco Use Smoking Status *Q: Never Smoker - Caffeine Use Caffeine Use: Reports: Coffee - Recreational Drug Use Recreational Drug Use: No - Living Situation & Occupation Living situation: Reports: , with Spouse, Other (reports has 5 children) Occupation: Retired H&P Review of Systems - Review of Systems: Review Of Systems: See Below General: Reports: Weakness, Fatigue, Decreased Appetite (due to nausea and vomiting), Other (reports does not have a Primary Care Provider or take any medications on regular basis.) HEENT: Reports: Glasses, Post Nasal Drip (chronic sinus drainage), Sinus Congestion (chronic sinus congestion ) Pulmonary: Reports: No Symptoms Cardiovascular: Reports: No Symptoms Gastrointestinal: Reports: Abdominal Pain, Diarrhea (recent diarrhea that has resolved), Decreased Appetite, Nausea, Vomiting Genitourinary: Reports: No Symptoms Musculoskeletal: Reports: Back Pain (chronic low back pain and arthritis) Skin: Reports: No Symptoms Psychiatric: Reports: No Symptoms Neurological: Reports: No Symptoms, Other (reports has a TIA more than 10 years ago - did not cause any problems) Hematologic/Lymphatic: Reports: No Symptoms Immunologic: Reports: No Symptoms Exam - Exam Exam: See Below - Vital Signs Vital Signs: Last Vital Signs Temp 37.3 C 03/31/20 15:53 Pulse 89 03/31/20 18:52 Resp 18 03/31/20 18:52 BP 146/68 H 03/31/20 20:01 Pulse Ox 98 03/31/20 18:52 Weight: 55.928 kg - Exam Quality Assessment: DVT Prophylaxis General: Alert, Oriented, Moderate Distress HEENT: PERRLA, Conjunctiva Clear, EOMI, Hearing Intact, Mucosa Moist & [place], Nares Patent, Glasses Neck: Supple, Trachea Midline, Full Range of Motion Lungs: Clear to Auscultation, Normal Respiratory Effort Cardiovascular: Regular Rate, Regular Rhythm, Normal S1, Normal S2 GI/Abdominal Exam: Distended, Tender (generalized pain ), Abnormal Bowel Sounds (absent bowel sounds all quadrants.) (Female) Exam: Deferred Rectal (Female) Exam: Deferred Back Exam: Normal Inspection, Full Range of Motion, NT Extremities: Normal Inspection, Normal Range of Motion, Non-Tender, No Pedal Edema, Normal Capillary Refill Skin: Warm, Dry, Intact Neurological: Reflexes Equal Bilateral, Strength Equal Bilateral, Normal Speech Neuro Extensive - Mental Status: Alert, Oriented x3, Normal Mood/Affect, Normal Cognition, Memory Intact Psychiatric: Alert, Normal Affect, Normal Mood - Patient Data Lab Results Last 24 hrs: Laboratory Results - last 24 hr 03/31/20 03/31/20 03/31/20 Range/Units 16:16 16:16 16:16 WBC 5.3 (4.5-11.0) K/uL RBC 3.82 (3.30-5.50) M/uL Hgb 10.9 L (12.0-15.0) g/dL Hct 35.9 L (36.0-48.0) % MCV 94 (80-98) fL MCH 29 (27-31) pg MCHC 30 L (32-36) % Plt Count 329 (150-400) K/uL Neut % (Auto) 77 H (36-66) % Lymph % (Auto) 14 L (24-44) % Roosevelt % (Auto) 8 H (2-6) % Eos % (Auto) 1 L (2-4) % Baso % (Auto) 1 (0-1) % PT 11.1 (9.5-12.0) sec INR 1.02 (0.80-1.20) Sodium 143 (140-148) mmol/L Potassium 3.2 L (3.6-5.2) mmol/L Chloride 106 (100-108) mmol/L Carbon Dioxide 24 (21-32) mmol/L Anion Gap 16.2 H (5.0-14.0) mmol/L BUN 6 L (7-18) mg/dL Creatinine 0.9 (0.6-1.0) mg/dL Est Cr Clr Drug Dosing 34.83 mL/min Estimated GFR (MDRD) 59 L (>60) Glucose 110 H (74-106) mg/dL Lactic Acid (0.4-2.0) mmol/L Calcium 8.4 L (8.5-10.1) mg/dL Total Bilirubin 0.6 (0.2-1.0) mg/dL AST 27 (15-37) U/L ALT 19 (12-78) U/L Alkaline Phosphatase 80 (46-116) U/L Total Protein 6.8 (6.4-8.2) g/dL Albumin 3.3 L (3.4-5.0) g/dL Globulin 3.5 (2.3-3.5) g/dL Albumin/Globulin Ratio 0.9 L (1.2-2.2) Lipase 230 (73-393) U/L 03/31/20 Range/Units 16:16 WBC (4.5-11.0) K/uL RBC (3.30-5.50) M/uL Hgb (12.0-15.0) g/dL Hct (36.0-48.0) % MCV (80-98) fL MCH (27-31) pg MCHC (32-36) % Plt Count (150-400) K/uL Neut % (Auto) (36-66) % Lymph % (Auto) (24-44) % Roosevelt % (Auto) (2-6) % Eos % (Auto) (2-4) % Baso % (Auto) (0-1) % PT (9.5-12.0) sec INR (0.80-1.20) Sodium (140-148) mmol/L Potassium (3.6-5.2) mmol/L Chloride (100-108) mmol/L Carbon Dioxide (21-32) mmol/L Anion Gap (5.0-14.0) mmol/L BUN (7-18) mg/dL Creatinine (0.6-1.0) mg/dL Est Cr Clr Drug Dosing mL/min Estimated GFR (MDRD) (>60) Glucose (74-106) mg/dL Lactic Acid 1.0 (0.4-2.0) mmol/L Calcium (8.5-10.1) mg/dL Total Bilirubin (0.2-1.0) mg/dL AST (15-37) U/L ALT (12-78) U/L Alkaline Phosphatase (46-116) U/L Total Protein (6.4-8.2) g/dL Albumin (3.4-5.0) g/dL Globulin (2.3-3.5) g/dL Albumin/Globulin Ratio (1.2-2.2) Lipase (73-393) U/L Result Diagrams: 09/15/20 16:16 03/31/20 16:16 Sepsis Event Note - Evaluation Sepsis Screening Result: No Definite Risk - Focused Exam Vital Signs: Vital Signs Temp Pulse Resp BP Pulse Ox 03/31/20 20:01 146/68 H 03/31/20 18:52 89 18 130/69 98 03/31/20 17:21 79 133/67 03/31/20 16:29 79 16 138/62 98 03/31/20 15:53 37.3 C 73 18 137/56 L 96 03/31/20 15:36 37.3 C 73 18 137/56 L 96 - Problem List (1) Small bowel obstruction SNOMED Code(s): 402393360 ICD Code: K56.609 - UNSP INTESTNL OBST, UNSP TO PARTIAL VERSUS COMPLETE OBST Status: Acute Priority: High Current Visit: Yes (2) Hypokalemia SNOMED Code(s): 04428880 ICD Code: E87.6 - HYPOKALEMIA Status: Acute Priority: High Current Visit: Yes Problem List Initiated/Reviewed/Updated: Yes Orders Last 24hrs: Active Orders 24 hr Category Date Time Status Intake and Output [RC] QSHIFT Care 03/31/20 20:39 Active Notify Provider Vital Signs [RC] ASDIRECTED Care 03/31/20 20:39 Active Oxygen Therapy [RC] PRN Care 03/31/20 20:39 Active Pulse Oximetry [RC] CONTINUOUS Care 03/31/20 20:39 Active Up With Assistance [RC] ASDIRECTED Care 03/31/20 20:39 Active VTE/DVT Education [RC] Per Unit Routine Care 03/31/20 20:39 Active Vital Signs [RC] Q4H Care 03/31/20 20:39 Active Nothing per Oral Now Diet [DIET] Diet 03/31/20 Dinner Active Abdomen 1V Flat [CR] AM Exams 04/01/20 05:11 Ordered Abdomen 1V Upright [CR] AM Exams 04/01/20 05:11 Ordered Abdomen 1V Upright [CR] Stat Exams 03/31/20 19:22 Ordered Abdomen 1V Upright [CR] Urgent Exams 03/31/20 16:02 Taken Chest 1V Frontal [CR] Stat Exams 03/31/20 19:22 Taken BASIC METABOLIC PANEL,BMP [CHEM] AM Lab 04/01/20 05:11 Ordered CBC WITH AUTO DIFF [HEME] AM Lab 04/01/20 05:11 Ordered UA W/MICROSCOPIC [URIN] Urgent Lab 03/31/20 16:02 Ordered Dextrose 5%-Lactated Ringers 1,000 ml Med 03/31/20 19:45 Active IV ASDIRECTED Dextrose 5%-Lactated Ringers 1,000 ml Med 03/31/20 20:39 Active IV ASDIRECTED HYDROmorphone [Dilaudid] Med 03/31/20 20:39 Active 1 mg IVPUSH Q2H PRN Melatonin Med 03/31/20 20:39 Active 6 mg PO BEDTIME PRN Ondansetron [Zofran] Med 03/31/20 20:39 Active 4 mg IV Q4H PRN Pantoprazole [ProTONIX IV] Med 04/01/20 09:00 Active 40 mg IV DAILY Nasogastric Orogastric Tube Insertion [OM.PC] Routine Oth 03/31/20 19:22 Ordered Peripheral IV Insertion Adult [OM.PC] Urgent Oth 03/31/20 16:02 Ordered Pressure Reduction Mattress [OM.PC] Routine Oth 03/31/20 20:39 Ordered Sequential Compression Device [OM.PC] Per Unit Routine Oth 03/31/20 20:39 Ordered Resuscitation Status Routine Resus Stat 03/31/20 20:11 Ordered Medication Orders Hydromorphone HCl (Dilaudid) 1 mg IVPUSH Q2H PRN PRN Reason: Abdominal Pain Dextrose/Lactated Ringer's (Dextrose 5%-Lactated Ringers) 1,000 mls @ 125 mls/hr IV ASDIRECTED [facility] Last Admin: 03/31/20 19:57 Dose: 125 mls/hr Documented by: JG Dextrose/Lactated Ringer's (Dextrose 5%-Lactated Ringers) 1,000 mls @ 125 mls/hr IV ASDIRECTED [facility] Last Admin: 03/31/20 21:18 Dose: 125 mls/hr Documented by: JENISE Melatonin (Melatonin) 6 mg PO BEDTIME PRN PRN Reason: Insomnia Ondansetron HCl (Zofran) 4 mg IV Q4H PRN PRN Reason: Nausea/Vomiting Pantoprazole Sodium (Protonix Iv) 40 mg IV DAILY [facility] Assessment/Plan Comment:: ASSESSMENT / PLAN- Small Bowel Obstruction Vital signs stable TPR 36.9-73-18 B/P 152/84 O2 sat 95% Labs CBC -WBC 5.3, Hgb 10.9, plts 329, BMP Na+143, K+ 3.2, anion gap 16.2, BUN 6, Glucose 110, lactic acid 1.0, PT 11.1, INR 1.020, Lipase 230, UA pending. Imaging Abdominal pelvic CT shows small bowel obstruction. Meds- IV fluids NS and maintenance D5 1/2 NS at 125 ml/hr. Given Zofran 4mg IV x 2 for nausea. No further vomiting. NG tube placement in ER, verify placement with chest xray. Mrs. Jones had 500 cc gastric fluids from NG tube suction. Consult to Surgeon Dr. Wilkins- admitting orders NPO, NG tube placement, pain control, IV fluids, antiemetics, x-ray abdomen in am, will evaluate in am. Discussed plan of care. and Mrs. Jones agree to admission. SMALL BOWEL OBSTRUCTION- -Admit to 2 [facility] for further monitoring -IV Fluids D5 LR 125 mL per hour. -IV Zofran 4mg every 4 hours as needed for nausea -IV Dilaudid 1 mg every 2 hours for pain control as needed -continuous pulse ox. while IV narcotics -NG Tube with low intermittent suction -Advise to notify nurses of any fever or worsen pain -X-ray abdomen flat and upright in am -a.m. labs: CBC, BMP HYPOKALEMIA -IV Potassium 40 meq once -AM Labs BMP Maintenance issues -Home medications- does not take medications -Nutrition: NPO, NG Tube in place. -Rodriguez catheter: not indicated -DVT: SCD -PPI; IV Protonix 40 mg daily -tobacco- non-smoker CODE STATUS: DNR/DNI Admission status: Admit 2 [facility] Admission justification. This patient will be admitted for inpatient services and is medically appropriate meeting medical necessity for inpatient admission as outlined in my documentation. I reasonably expect the patient will require inpatient services that span. Time over 2 midnights. I reasonably expect this patient to be discharged or transferred within 96 hours after admission to the critical access hospital. Disposition: home with Hayden Primary care provider: does not have a PCP, [facility] Hospitalist: Dr. Saucedo Surgery Service: Dr. Wilkins - Mortality Measure Prognosis:: Good - Mortality Measure Prognosis:: Good
[2020-03-31] MEDS ORDERED: Potassium Chloride Riders 40 MEQ in Premix Bag 1 BAG IV ONE (22:35)
[2020-04-01] MEDS: HYDROmorphone 1 MG/ML Syringe IVPUSH PRN ×4 (00:02→16:20)
[2020-04-01] MEDS: Ondansetron 4 MG/2 ML SDV IV PRN ×3 (03:32→16:23)
[2020-04-01] MEDS: Dextrose 5%-Lactated Ringers 1,000 ML IV SCH ×2 (05:14→16:17)
[2020-04-01] MEDS: Pantoprazole 40 MG Vial IV SCH (09:05)
[2020-04-01] MEDS: Bisacodyl 10 MG Supp RECTAL SCH ×2 (09:09→20:11)
--- NOTE | 2020-04-01 10:37 | CR ---
Abdomen 1V Upright CLINICAL HISTORY: SBO FINDINGS: Patient has had previous right upper quadrant surgery for partial hepatectomy and cyst removal. There is a collection of air near the right hemidiaphragm. This may represent some interposed bowel post surgery. There are scattered small bowel air-fluid levels. Pattern is nonspecific. There is some gas and feces in the colon. Bladder appears distended. IMPRESSION: Recent abdominal surgery to remove large hepatic cysts Scattered small bowel loops with air-fluid levels. This is nonspecific. This may be ileus but partial or early small bowel obstruction is not excluded. Collection of air in the right upper quadrant near the right hemidiaphragm may be some interposed bowel post surgery. This is not typical for free air
--- NOTE | 2020-04-01 10:45 | CR ---
CHEST: Portable 03/31/2020 at 8:42 PM CLINICAL HISTORY:NG tube placement COMPARISON:2014 FINDINGS: The heart size, pulmonary vascularity and hilar structures are normal. No infiltrate effusion or pneumothorax is seen. There are atherosclerotic changes in the aorta. There is an NG tube the colon the fundus of the stomach. IMPRESSION: No acute cardiopulmonary process. NG tube in the fundus of the stomach Air under the right hemidiaphragm. This could be air within a residual cyst cavity within the liver following surgery
--- NOTE | 2020-04-01 10:45 | PN ---
DATE OF SERVICE: 04/01/2020 SUBJECTIVE: Jenn presented to the emergency room yesterday with severe abdominal pain. She had a hepatic resection on 03/13/2020. She called the clinic with increasing pain and was instructed to go to the ER. She states the pain started yesterday morning when she got up. She had been throwing up. The pain continued. It was a 10/10, and at that time she went to the ER. The pain is in mid abdomen and radiates to the right upper quadrant. Today, she said that she continues to have an increased amount of pain. The pain medication does help. She has an NG in. Vital signs have been stable. PAST MEDICAL HISTORY: Irregular heartbeat, history of colon polyps, constipation, renal cyst, TIA, anxiety and depression. PAST SURGICAL HISTORY: See EMR. FAMILY HISTORY: Noncontributory. SOCIAL HISTORY: . Lives with her and has 5 children and retired. REVIEW OF SYSTEMS: GENERAL: Denies any fever. States has been very weak and tired. No appetite. HEENT: Negative. LUNGS: No cough. HEART: No irregular heartbeat. Denies any chest pain or shortness of breath. ABDOMEN: As above. GENITOURINARY: Negative. MUSCULOSKELETAL: Chronic back pain. SKIN: Negative. PSYCHIATRIC: Negative. NEUROLOGIC: No neurological symptoms. Remainder of review of systems negative for any pertinent positives and negatives. OBJECTIVE: GENERAL: Jenn Jones is a pleasant 89-year-old female. VITAL SIGNS: Height is 5 feet 2 inches. Weight is 123 pounds. TPR is 96.8, 93, 18. Blood pressure 127/79. HEENT: Negative. NECK: Supple. HEART: Regular rate and rhythm. LUNGS: Clear. ABDOMEN: Slightly distended and generalized tenderness. EXTREMITIES: Negative. Full range of motion. NEUROLOGIC: Intact. PSYCHIATRIC: Mood and affect appropriate. ASSESSMENT: 1. Small bowel obstruction. 2. Hypokalemia. PLAN: 1. Remain n.p.o. with ice chips. 2. Check flat and upright abdominal x-ray in a.m. 3. CT IV contrast only at 0400 in a.m. Have over read by radiologist. 4. Dulcolax suppository b.i.d. scheduled. 5. We will evaluate p.r.n. or in a.m. Rosaline Rasheed PA-C /[id number]
--- NOTE | 2020-04-01 11:11 | CR ---
Abdomen 2V AP Flat Upright CLINICAL HISTORY: SBO FINDINGS: Patient is status post recent hepatic surgery. There is some air in the right upper quadrant which is likely within a cystic cavity remanent. Small intestinal configuration is nonspecific. There is an NG tube curled in the fundus of the stomach. The bladder is distended. IMPRESSION: Nonspecific intestinal gas pattern Recent hepatic surgery NG tube in the stomach Urinary bladder distention
[2020-04-02] MEDS: Dextrose 5%-Lactated Ringers 1,000 ML IV SCH ×2 (00:18→13:08)
[2020-04-02] MEDS: HYDROmorphone 1 MG/ML Syringe IVPUSH PRN ×2 (00:23→06:25)
[2020-04-02] MEDS ORDERED: Iopamidol 612 MG/ML 100 ML Bottle IV STA (04:05)
--- NOTE | 2020-04-02 05:38 | CRLCT ---
INDICATION: Partial small bowel. COMPARISON: 03/31/2020. TECHNIQUE: CT abdomen pelvis with IV contrast. 80 cc Isovue-300. FINDINGS: Small right pleural effusion and right basilar atelectasis/consolidation is new from prior exam. Linear left basilar subsegmental atelectasis. Postsurgical changes of hepatic for section on the right are similar to prior examination. Fluid under the right hemidiaphragm could be postsurgical, increased compared to prior. Hepatic cysts are again noted. Gallbladder is absent. The spleen, pancreas and adrenal glands are unremarkable. Kidneys enhance symmetrically. No obstructing renal calculus or hydronephrosis. Left renal cysts are again noted. Abdominal aorta is normal in caliber. Rodriguez catheter in nondistended bladder. Uterus is absent or atrophic. Mild ascites is increased from prior exam. Persistently dilated small bowel loops, transition point in the right lower quadrant consistent with small-bowel obstruction. Two adjacent transition points in the right lower quadrant (series 2, images 77-80) suspicious for closed loop obstruction. Fecalized material in the bowel lumen. Colonic diverticulosis. Midline incisional changes. No enlarged lymph nodes identified in the abdomen or pelvis. Bones are demineralized. IMPRESSION: 1. Persistent small bowel obstruction, with findings suspicious for closed loop obstruction. 2. Postsurgical changes in the liver and under the right hemidiaphragm, increased fluid under the diaphragm compare to prior. 3. Small right pleural effusion and right basilar atelectasis/consolidation is new from prior exam. Dr. oMrales discussed findings with Dr. Wilkins at 6:10 AM on 04/02/20. Please note that all CT scans at this facility use dose modulation, iterative reconstruction, and/or weight-based dosing when appropriate to reduce radiation dose to as low as reasonably achievable. Dictated by Cali Jaffe MD @ Apr 02 2020 10:04AM Signed by Dr. Cali Jaffe @ Apr 02 2020 10:16AM
[2020-04-02] MEDS: Ondansetron 4 MG/2 ML SDV IV PRN ×2 (06:23→11:26)
[2020-04-02] MEDS ORDERED: Bupivacaine 0.5% 50 ML MDV ONE (06:37)
[2020-04-02] MEDS ORDERED: Meropenem 500 MG SDV ONE (06:37)
[2020-04-02] MEDS ORDERED: Lidocaine 1% with EPINEPHrine 1:100,000 50 ML MDV ONE (06:37)
[2020-04-02] MEDS ORDERED: HYDROmorphone/Normal Saline 15 MG/30 ML PCA IV PRN (08:05)
[2020-04-02] MEDS ORDERED: fentaNYL 250 MCG/5 ML SDV ONE (08:40)
[2020-04-02] MEDS ORDERED: cefOXitin 2 GM in Sodium Chloride 0.9% 50 ML IV ONE (09:00)
[2020-04-02] MEDS ORDERED: Naloxone 0.4 MG/ML SDV IV PRN (09:00)
--- NOTE | 2020-04-02 09:14 | PN ---
DATE OF SERVICE: 04/02/2020 SUBJECTIVE: Jenn has a closed loop small bowel obstruction. She is n.p.o. Vital signs have been stable. Reports pain but she is able to rest in between using the DOUBLE NEEDLE OPERATOR LOCKSTITCH. Oral intake 60, ice chips only, and Rodriguez catheter put out 1850. She did have 1 bowel movement and NG put out 550. REVIEW OF SYSTEMS: Remainder of review of systems negative for any pertinent positives and negatives. OBJECTIVE: GENERAL: Jenn Jones is a pleasant 89-year-old female. VITAL SIGNS: TPR at 07:42, 97.6; 100; 16; blood pressure 107/56. HEENT: Negative. NECK: Supple. HEART: Regular rate and rhythm. LUNGS: Clear. ABDOMEN: Remains to be tender, slightly distended. EXTREMITIES: Without peripheral edema. SCDs are on. ASSESSMENT: 1. Small bowel obstruction. 2. Schedule and have consent signed for exploratory laparotomy for release of small bowel obstruction, possible small bowel resection. General anesthesia, TAP block. Case to follow on 04/02/2020. 3. Cefoxitin 2 g IV on-call to OR. 4. After preoperative evaluation, discussion of possible risks and possible complications, the patient wishes to proceed with surgical procedure. Rosaline Rasheed PA-C /[id number]
[2020-04-02] MEDS ORDERED: Lactated Ringers 1,000 ML ONE (09:44)
[2020-04-02] MEDS ORDERED: Succinylcholine 200 MG/10 ML MDV ONE (10:00)
[2020-04-02] MEDS ORDERED: Propofol 200 MG/20 ML SDV ONE (10:00)
[2020-04-02] MEDS ORDERED: Neostigmine Methylsulfate 1 MG/ML 5 ML Syringe ONE (10:00)
[2020-04-02] MEDS ORDERED: Dexamethasone 4 MG/ML SDV ONE (10:00)
[2020-04-02] MEDS ORDERED: Ondansetron 4 MG/2 ML SDV ONE (10:00)
[2020-04-02] MEDS ORDERED: Rocuronium 50 MG/5 ML Vial ONE (10:00)
[2020-04-02] MEDS ORDERED: Glycopyrrolate 0.2 MG/ML 5 ML MDV ONE (10:00)
[2020-04-02] MEDS: Bisacodyl 10 MG Supp RECTAL SCH (11:23)
[2020-04-02] MEDS ORDERED: Cyclobenzaprine 10 MG Tab PO PRN (11:39)
[2020-04-02] MEDS: Pantoprazole 40 MG Vial IV SCH (11:44)
[2020-04-02] MEDS ORDERED: hydrOXYzine HCL 100 MG/2 ML SDV IM PRN (12:00)
[2020-04-02] MEDS ORDERED: Acetaminophen 500 MG Tab PO PRN (12:00)
[2020-04-02] MEDS ORDERED: Heparin Sodium 5,000 Units/ML Vial SUBCUT SCH (12:00)
[2020-04-02] MEDS ORDERED: Metoclopramide 10 MG/2 ML SDV IVPUSH PRN (12:00)
[2020-04-02] MEDS ORDERED: Albuterol/Ipratropium 3.0-0.5 MG/3 ML Neb Soln INH PRN (12:00)
[2020-04-02] MEDS ORDERED: Labetalol 20 MG/4 ML Syringe IVPUSH PRN (12:00)
[2020-04-02] MEDS ORDERED: diphenhydrAMINE 50 MG/ML SDV IVPUSH PRN (12:00)
[2020-04-02] MEDS: Acetaminophen 325 MG Tab PO SCH ×2 (15:09→21:18)
[2020-04-02] MEDS ORDERED: MVI, Adult with Vitamin K 10 ML, Thiamine 200 MG, Chromium/Copper/Mang/Selen/Zn 1 ML in... IV SCH ×4 (16:00)
[2020-04-02] MEDS: cefOXitin 2 GM in Sodium Chloride 0.9% 50 ML IV SCH ×2 (16:48→21:18)
[2020-04-03] MEDS: Dextrose 5%-Lactated Ringers 1,000 ML IV SCH ×2 (00:42→08:34)
[2020-04-03] MEDS: cefOXitin 2 GM in Sodium Chloride 0.9% 50 ML IV SCH ×2 (05:00→10:56)
[2020-04-03] MEDS: Acetaminophen 325 MG Tab PO SCH ×3 (05:01→21:07)
[2020-04-03] MEDS: Pantoprazole 40 MG Vial IV SCH (08:35)
[2020-04-03] MEDS: Bisacodyl 5 MG Tab PO SCH ×2 (10:50→21:07)
[2020-04-03] MEDS: Docusate Sodium 100 MG Cap PO SCH ×2 (10:51→21:07)
[2020-04-03] MEDS: Magnesium Sulfate/Water 2 GM/50 ML BAG IV SCH ×3 (11:36→21:07)
[2020-04-03] MEDS: Potassium Phos in 0.9 % NaCl 15 MMOL in Premix Bag 1 BAG IV SCH ×8 (11:37→18:08)
--- NOTE | 2020-04-03 14:43 | PN ---
DATE OF SERVICE: 04/03/2020 SUBJECTIVE: Juliana is postoperative day 1. She is alert and orientated. States her pain is controlled. Vital signs have been stable. She is on sips of liquids only, tolerating that well. She has no other concerns and has no other questions. OBJECTIVE: GENERAL: Jenn Jones is a pleasant 89-year-old female, alert, orientated, as stated above. VITAL SIGNS: TPR at 0726 is 98.3, 83, 16. Blood pressure 102/59. HEENT: Negative. NECK: Supple. HEART: Regular rate and rhythm. LUNGS: Clear. ABDOMEN: Dressing dry and intact. Abdominal binder is on. EXTREMITIES: Without peripheral edema. ASSESSMENT: Exploratory laparotomy with lysis of extensive adhesions. 1. Small bowel resection. 2. Decompression of the small bowel. 3. Drainage of septal fluid collection below right diaphragm. 4. Placement of Interceed mesh. 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 Date of procedure: 04/02/2020. Surgeon: Hayden Wilkins MD. PLAN: 1. Discontinue Rodriguez catheter. 2. Decrease IV to 100 mL per hour at noon today. 3. Dulcolax 10 mg tabs p.o. b.i.d. and scheduled until patient has a bowel movement. 4. Colace 100 mg b.i.d. p.o. scheduled. 5. Continue use of incentive spirometer. 6. We will evaluate p.r.n. or in a.m. Rosaline Rasheed PA-C /[id number]
[2020-04-03] MEDS: MVI, Adult with Vitamin K 10 ML, Thiamine 200 MG, Chromium/Copper/Mang/Selen/Zn 1 ML in... IV SCH ×4 (15:40)
[2020-04-03] MEDS ORDERED: Tamsulosin 0.4 MG Cap.ER PO ONE (22:12)
[2020-04-04] MEDS: Magnesium Sulfate/Water 2 GM/50 ML BAG IV SCH ×4 (03:13→21:09)
[2020-04-04] MEDS: Acetaminophen 325 MG Tab PO SCH ×3 (05:17→21:10)
[2020-04-04] MEDS: Dextrose 5%-Lactated Ringers 1,000 ML IV SCH (07:57)
[2020-04-04] MEDS: Bisacodyl 5 MG Tab PO SCH ×2 (08:04→20:03)
[2020-04-04] MEDS: Pantoprazole 40 MG Vial IV SCH (08:04)
[2020-04-04] MEDS: Docusate Sodium 100 MG Cap PO SCH ×2 (08:04→20:03)
[2020-04-04] MEDS: Azithromycin 250 MG Tab PO SCH ×2 (08:13→20:03)
[2020-04-04] MEDS: Tamsulosin 0.4 MG Cap.ER PO SCH ×2 (08:13→20:04)
[2020-04-04] MEDS ORDERED: Cyanocobalamin (Vitamin B12) 1,000 MCG/ML SDV IM ONE (09:00)
--- NOTE | 2020-04-04 12:56 | PN ---
DATE OF SERVICE: 04/04/2020 The patient has been afebrile with stable vital signs. She had urinary retention last night. A Rodriguez catheter scheduled Flomax, she did receive a dose of that last night. No flatus or bowel movement as of yet. Required some oral Zithromax today to augment GI tract motility. Otherwise, maximize activity, work with pulmonary toilet. Hayden Wilkins MD /[id number]
[2020-04-04] MEDS: MVI, Adult with Vitamin K 10 ML, Thiamine 200 MG, Chromium/Copper/Mang/Selen/Zn 1 ML in... IV SCH ×4 (15:19)
[2020-04-05] MEDS: Magnesium Sulfate/Water 2 GM/50 ML BAG IV SCH ×4 (04:56→21:00)
[2020-04-05] MEDS: Dextrose 5%-Lactated Ringers 1,000 ML IV SCH ×2 (04:57→08:38)
[2020-04-05] MEDS: Acetaminophen 325 MG Tab PO SCH ×3 (05:00→20:59)
[2020-04-05] MEDS: Bisacodyl 5 MG Tab PO SCH ×2 (08:38→20:16)
[2020-04-05] MEDS: Docusate Sodium 100 MG Cap PO SCH ×2 (08:38→20:16)
[2020-04-05] MEDS: Pantoprazole 40 MG Vial IV SCH (08:38)
[2020-04-05] MEDS ORDERED: Magnesium Hydroxide 400 MG/5 ML Susp 30 ML Cup PO ONE ×2 (09:00→16:00)
[2020-04-05] MEDS: Potassium Phos in 0.9 % NaCl 15 MMOL in Premix Bag 1 BAG IV SCH ×6 (09:54→14:20)
[2020-04-05] MEDS: Azithromycin 250 MG Tab PO SCH ×2 (09:55→21:00)
[2020-04-05] MEDS ORDERED: Furosemide 20 MG/2 ML VIAL IVPUSH ONE (14:00)
--- NOTE | 2020-04-05 15:04 | PN ---
DATE OF SERVICE: 04/05/2020 The patient has been afebrile with stable vital signs. . No bowel movement as of yet. We will continue bowel stimulation and add some Milk of Magnesia, dulcolax, as well as suppository. The hemoglobin is down to 8.5. We will give her 1 unit of packed RBCs today followed by some Lasix, potassium marginally low as well and will be supplemented and we will back down in the IV rate and continue to maximize activity and work on pulmonary toilet. Hayden Wilkins MD /[id number]
[2020-04-05] MEDS ORDERED: Bisacodyl 10 MG Supp RECTAL ONE (16:00)
[2020-04-05] MEDS ORDERED: HYDROmorphone 2 MG Tab PO PRN (16:39)
[2020-04-05] MEDS: Ondansetron 4 MG/2 ML SDV IV PRN (20:16)
[2020-04-05] MEDS: Tamsulosin 0.4 MG Cap.ER PO SCH (21:00)
[2020-04-06] MEDS: Dextrose 5%-Lactated Ringers 1,000 ML IV SCH (01:37)
[2020-04-06] MEDS: Magnesium Sulfate/Water 2 GM/50 ML BAG IV SCH (03:45)
[2020-04-06] MEDS: Acetaminophen 325 MG Tab PO SCH (05:26)
[2020-04-06 07:36] VITALS: BP 121/70; PULSE 86
[2020-04-06] MEDS: Docusate Sodium 100 MG Cap PO SCH (08:06)
[2020-04-06] MEDS: Bisacodyl 5 MG Tab PO SCH (08:06)
[2020-04-06] MEDS: Pantoprazole 40 MG Vial IV SCH (08:14)
[2020-04-06] MEDS: Azithromycin 250 MG Tab PO SCH (08:14)
--- NOTE | 2020-04-06 10:13 | CR ---
Abdomen 2V AP Flat Upright CLINICAL HISTORY: Partial small bowel obstruction FINDINGS: Patient status post recent abdominal surgery. There are distended small bowel loops with scattered air-fluid levels. There is gas and feces in the colon. There is some scarring or streaky atelectasis in the left lung base. There is a small right effusion similar to prior study. IMPRESSION: Recent abdominal surgery Small bowel distention with scattered air-fluid levels. Distention is increased slightly since the 04/04/2020 study.
--- NOTE | 2020-04-06 10:46 | CR ---
Abdomen 2V AP Flat Upright CLINICAL HISTORY: Partial small bowel obstruction FINDINGS: Patient is status post abdominal surgery. There are scattered air-filled dilated loops of small bowel with scattered air-fluid levels. There is a small amount of air in the colon. There is some postoperative free intraperitoneal air. There is right lower lobe airspace disease which may be some atelectasis IMPRESSION: Small bowel distention. This may represent some postoperative ileus or partial obstruction.
--- NOTE | 2020-04-06 11:49 | OR ---
DATE OF PROCEDURE: 04/02/2020 SURGEON: Hayden Wilkins MD PREOPERATIVE DIAGNOSIS: Closed loop small bowel obstruction. POSTOPERATIVE DIAGNOSES: 1. 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 2. Extensive distention of proximal small bowel. 3. Septated inflammatory fluid collection underlying the diaphragm. OPERATIVE PROCEDURE: Exploratory laparotomy with lysis of adhesions and: 1. Small bowel resection (75934). 2. Tube decompression of proximal small bowel (96886). 3. Drainage of septated inflammatory fluid collection underlying the right diaphragm (76635). 4. Placement of Interceed mesh to limit adhesion formation between the pelvic and abdominal wall and underlying viscera (52689). ANESTHESIA: General. ASSOCIATE ENGINEER: Rosaline Rasheed PA-C INDICATIONS FOR PROCEDURE: This is an 89-year-old female presenting with a picture of small bowel obstruction. She was admitted initially with nasogastric suctioning. Subsequent CT scan today showed this as developing into a closed loop-type obstruction and the plan is to proceed with exploratory laparotomy with probable lysis of adhesions and possible bowel resection. Potential risks of the procedure including bleeding, infection, leaks from various GI tract closures, possible recurrence of the problem over time as well as possibility of cardiopulmonary, septic, or hemorrhagic complications leading to were discussed with the patient. The patient's son, Cali was also involved in the preoperative discussion and agrees with the overall plan. DETAILS OF PROCEDURE: The patient was taken to the operating room. After general endotracheal anesthesia was induced, a Rodriguez catheter was inserted and the abdomen prepped and draped. A midline incision was made from roughly a handsbreadth below the xiphoid a few centimeters below the umbilicus, carried down through the skin and subcutaneous tissue and through the full-thickness abdominal wall. Upon entering the peritoneal cavity, some tincture of fluid was present. Inspection immediately identified a band of adhesion under which a loop of small bowel had been wrapped underneath with the bowel resembling an omega loop-type configuration. That segment of bowel had obviously hemorrhagic necrosis with the bowel at this point being deep red or purple configuration. The adhesion was lysed at this point and the bowel proximal and distal to the area of involvement was then divided with SARTHAK olegario as was the underlying mesentery and the specimen delivered from the field. Remainder of the small bowel was inspected. No additional abnormalities were noted. The patient was noted to have on preoperative CT scan what appeared to be septated fluid collection underneath the right diaphragm that is little bit related to the patient's recent right liver resection. This was then broken up and had some thin reddish fluid within it consistent with some local inflammation with the diaphragm and adjacent liver also being reddened and somewhat inflamed and did not appear to be infected and cultures were not obtained. Upon completion of that drainage of the subphrenic fluid collection, the bowel proximal to the obstruction was noted to be quite distended. A small enterotomy was made and a tube placed and fluid from the ligament of Treitz down to that level was evacuated to allow more rapid return of GI tract function as well as decrease risk of leakage at the anastomosis. Once this was accomplished, a orrb-ex-ezhu enteroenterostomy was accomplished with the internal firing of the Endo-SARTHAK 60 mm stapler x2. Common opening was then closed transversely with the SARTHAK stapler as well and the angles anastomosed and mesenteric defect approximated with some 3-0 Vicryl stitch, and at that point, no further problems noted. The abdomen was irrigated with meropenem-containing saline solution. Interceed mesh was placed underneath the incision, down toward the pelvis to limit recurrent adhesion formation between those surfaces and the underlying viscera. The midline fascia was then approximated with #2 Vicryl stitch, subcutaneous tissue with 2 layers of 3-0 and 4-0 Vicryl stitch deep, and the skin with olegario. During the onset of laparotomy, bilateral transversus abdominis plane blocks were placed. Physician driller's assistant, Rosaline Rasheed, played an essential role in assisting in this case, helping to position the patient, retract structures as needed, as well as suturing and cutting sutures when indicated. Her presence improved patient safety and decreased the operative time. Hayden Wilkins MD /[id number]
--- NOTE | 2020-04-06 13:37 | DISCH ---
ADMISSION DIAGNOSES: Partial small bowel obstruction, cystic disease of liver. DISCHARGE DIAGNOSES: 1. Exploratory laparotomy with lysis of extensive adhesions. a. Small-bowel resection. b. Decompression of the small bowel. c. Drainage of septated collection below right diaphragm. d. Placement of Interceed mesh. POSTOPERATIVE DIAGNOSIS: 1. Adhesive small bowel with focal hemorrhagic infection. 2. Small bowel extensive distention of the proximal small bowel. 3. Septated fluid collection under right diaphragm. 4. Date of procedure: 04/02/2020. Surgeon: Hayden Wilkins MD. 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 She presented to the emergency room on 03/31/2020 with severe abdominal pain, and after preoperative evaluation and discussion of possible risks and possible complications, she wished to proceed with surgical procedure. HOSPITAL COURSE: Jenn had her surgery on 04/02/2020. She had no operative complications. On postoperative day #1, continued with [employer] and IV was decreased. Rodriguez catheter was discontinued. She was started on bowel stimulation. On postoperative day #2, remained afebrile. A Rodriguez catheter did have to be replaced and she was started on Flomax and Zithromax for GI motility. On 04/05/2020, she started having bowel movements after milk of mag and Dulcolax suppositories were added to her stool regime. Hemoglobin went to 8.5. She received 1 unit of packed red blood cells with Lasix and potassium supplemented. On 04/06/2020, Jenn was alert, orientated, and ready to be discharged to home. She had a bowel movement, vital signs stable, and she was independent and getting in and out of bed. REVIEW OF SYSTEMS: Remainder of review of systems negative for any pertinent positives or negatives. PHYSICAL EXAMINATION: GENERAL: Jenn is a pleasant 89-year-old female. VITAL SIGNS: Height is 5 feet 1.81 inches, weight is 123 pounds. TPR at 0700 is 98.2; 86; 16; and blood pressure is 121/70. HEENT: Negative. NECK: Supple. HEART: Regular rate and rhythm. LUNGS: Clear. ABDOMEN: Dressings dry and intact. Abdominal binder is on. EXTREMITIES: Without peripheral edema. DISPOSITION: Discharged to home. DISCHARGE CONDITION: Stable and improving. DISPOSITION: Discharged to home with home health care on 04/06/2020. FOLLOWUP APPOINTMENT: With Rosaline Rasheed PA-C on 04/14/2020 at 10:15 a.m. Follow up with Melany Hill MD, her primary care provider on 04/22/2020 at 1:30 p.m. HOME MEDICATIONS: She is to resume her home medications, Excedrin 1 capsule every 4 hours p.r.n. DIET: Full liquid diet until first postop appointment. ACTIVITY: No lifting over 10 pounds for 6 weeks. Driving: Do not drive for 1 week. Shower/bathing: May shower. DISCHARGE INSTRUCTIONS: Notify provider if any fever, increased pain, swelling, redness, nausea, vomiting. Keep site clean and dry. Wear abdominal binder for 6 weeks and then as tolerated. Take off Aquacel dressing on , 04/09/2020, and use incentive spirometer 10 times every hour while awake.
== END 2020-04-06 11:18 | disposition home health service (06) | DRG 330 ==
LOC: JP.ED 14:54 → JP.MS 20:10
PROVIDERS: ADMIT Hospitalist; ATTEND Surgery
PROC: 0DB80ZZ Excision of Small Intestine, Open Approach (ICD-10-PCS; principal; 2020-04-02)
PROC: 0DN80ZZ Release Small Intestine, Open Approach (ICD-10-PCS; 2020-04-02)
PROC: 0D980ZZ Drainage of Small Intestine, Open Approach (ICD-10-PCS; 2020-04-02)
PROC: 0B9 Respiratory System, Drainage (ICD-10-PCS; 2020-04-02)
PROC: 3E0M05Z Introduction of Adhesion Barrier into Peritoneal Cavity, Open Approach (ICD-10-PCS; 2020-04-02)
PROC: 30233N1 Transfusion of Nonautologous Red Blood Cells into Peripheral Vein, Percutaneous Approach (ICD-10-PCS; 2020-04-05)
DX: K56.609 Unspecified intestinal obstruction, unspecified as to partial versus complete obstruction (principal); K56.51 Intestinal adhesions [bands], with partial obstruction; K92.2 Gastrointestinal hemorrhage, unspecified; K76.89 Other specified diseases of liver; H54.7 Unspecified visual loss; K59.00 Constipation, unspecified; F41.9 Anxiety disorder, unspecified; F32.9 Major depressive disorder, single episode, unspecified; Z86.73 Personal history of transient ischemic attack (TIA), and cerebral infarction without residual deficits; Z86.010 Personal history of colon polyps; Z20.828 Contact with and (suspected) exposure to other viral communicable diseases; Z98.49 Cataract extraction status, unspecified eye; Z90.89 Acquired absence of other organs; Z90.49 Acquired absence of other specified parts of digestive tract; Z90.710 Acquired absence of both cervix and uterus; E87.6 Hypokalemia; K63.89 Other specified diseases of intestine
CPT/HCPCS: 36415; 74018 ×2; 74177; 80053; 83605; 83690; 85025; 85610; 96361; 96374; 96375; 96376; 99285; J0780; J1170 ×3; J2405 ×2; J3010; J7030; J7050; J7121; Q9967; 36430; 51702; 51798; 71045; 71045-26; 74019; 74019-26; 80048; 81001; 83735; 83880; 84100; 85027; 86850; 86900; 86901; 86920; 86922; 88307; 94762; 97110-GP; 97162-GP; 97530-GP; A9270-GY; C9113; J0171; J0330; J0694; J1100; J1940; J2185; J2704; J2710; J2765; J2795; J3411; J3420; J3475; J3480; J3490; J7120; P9016; U0002